=== PATIENT | female | born 1995 | race Two or more races ===

== ENCOUNTER 2025-03-17 21:26 | Inpatient (IN) | payer MEDICARE, OTHER ==
[~2025-03-17] VITALS: Ht 167.6 cm; Wt 103.6 kg
--- NOTE | 2025-03-17 21:43 | ED.PDOC ---
History of Present Illness HPI Comments 29 year old female came to ER via EMS due to headaches. Patient has history of schizophrenia and bipolar disorder. States for the past few hours she has been complaining of headaches, 5/10 intensity, associated with nausea, and she claims that he CSF is draining out her nose. Patient does not appear to be at any pain at this time of care. 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 Allergies: Coded Allergies: Vancomycin (Verified Allergy, Unknown, 03/17/25) Information Source: Patient, Emergency Med Personnel Mode of Arrival: EMS Severity: Moderate Timing: Hours Duration: Intermittent Past Medical History PAST MEDICAL HISTORY: Schizophrenia Past Medical History (Other): Bipolar disorder Surgical History: Denies all surgeries SOUND EDITOR History: Denies all SOUND EDITOR Hx Family History Family History: Reviewed,noncontributory to illness Social History Smoker: Non-Smoker Alcohol: Denies ETOH Use Drugs: Denies Drug Use Lives In: Home Constitutional: denies: chills, diaphoresis, fatigue, fever, malaise, sweats, weakness, others EENTM: denies: blurred vision, double vision, ear bleeding, ear discharge, ear drainage, ear pain, ear ringing, eye pain, eye redness, hearing loss, mouth pain, mouth swelling, nasal discharge, nose bleeding, nose congestion, nose pain, photophobia, tearing, throat pain, throat swelling, voice changes, others Respiratory: denies: cough, hemoptysis, orthopnea, SOB at rest, shortness of breath, SOB with excertion, stridor, wheezing, others Cardiovascular: denies: chest pain, dizzy spells, diaphoresis, Dyspnea on exertion, edema, irregular heart beat, left arm pain, lightheadedness, palpitations, PND, syncope, others Gastrointestinal: denies: abdomen distended, abdominal pain, blood streaked bowels, constipated, diarrhea, dysphagia, difficulty swallowing, hematemesis, melena, nausea, poor appetite, poor fluid intake, rectal bleeding, rectal pain, vomiting, others Genitourinary: denies: abnormal vagina bleeding, burning, dyspareunia, dysuria, flank pain, frequency, hematuria, incontinence, pain, , vagina discharge, urgency, others Neurological: reports: headache; denies: dizziness, fainting, left sided numbness, left sided weakness, numbness, paresthesia, pre-existing deficit, right sided numbness, right sided weakness, seizure, speech problems, tingling, tremors, weakness, others Musculoskeletal: denies: back pain, gout, joint pain, joint swelling, muscle pain, muscle stiffness, neck pain, others Integumetry: denies: bruises, change in color, change in hair/nails, dryness, laceration, lesions, lumps, rash, wounds, others Allergic/Immunocompromised: denies: Difficulty Healing, Frequent Infections, Hives, Itching, others Hematologic/Lymphatic: denies: anemia, blood clots, easy bleeding, easy bruising, swollen glands, others Endocrine: denies: excessive hunger, excessive sweating, excessive thirst, excessive urination, flushing, intolerance to cold, intolerance to heat, unexplained weight gain, unexplained weight loss, others Psychiatric: denies: anxiety, bipolar disorder, depression, hopeless, panic disorder, schizophrenia, sleepless, suicidal, others Physical Exam General Appearance: No Apparent Distress, Normal HEENT: Normal ENT Inspection, Pharynx Normal, TMs Normal Neck: Full Range of Motion, Non-Tender, Normal, Normal Inspection Respiratory: Chest Non-Tender, Lungs Clear, No Accessory Muscle Use, No Respiratory Distress, Normal Breath Sounds Cardiovascular: No Edema, No JVD, No Murmur, No Gallop, Normal Peripheral Pulses, Regular Rate/Rhythm Breast Exam: Deferred Gastrointestinal: No Organomegaly, Non Tender, No Pulsatile Mass, Normal Bowel Sounds, Soft Genitalia: Deferred Pelvic: Deferred Rectal: Deferred Extremities: No calf tenderness, Normal capillary refill, Normal inspection, Normal range of motion, Non-tender, No pedal edema Musculoskeletal : Apperance: Normal Neurologic: Alert, sandwich hand II-XII nml as Tested, No Motor Deficits, Normal Affect, Normal Mood, No Sensory Deficits Cerebellar Function: Normal Reflexes: Normal Skin: Dry, Normal Color, Warm Lymphatic: No Adenopathy Was a procedure done? Was a procedure done?: No Differential Dx Considerations may include: anemia, headaches, schizophrenia, bipolar disorder X-Ray, Labs, Meds, VS Vital Signs Date Time Temp Pulse Resp B/P (MAP) Pulse Ox O2 Delivery O2 Flow Rate FiO2 03/17/25 21:26 99.0 110 17 112/53 (72) 98 99.0 Lab Test 03/18/25 00:15 03/17/25 23:30 03/17/25 22:06 Range/Units Lactic Acid Level 1.9 0.4-2.0 mmol/L Urine Color Yellow Yellow Urine Clarity Clear Clear Urine pH 5.5 5.0-9.0 Urine Specific [place] 1.031 1.001-1.035 Urine Protein Trace H Negative Urine Ketones Trace Negative Urine Blood 1+ H Negative /uL Urine Nitrite Negative Negative Urine Bilirubin Negative Negative Urine Urobilinogen Normal Negative mg/dL Urine Leukocyte Esterase Negative Negative /uL Urine RBC 2 0 - 4 /hpf Urine Microscopic WBC 2 0-5 /HPF Urine Squamous Epithelial Cells Few <5 /hpf Urine Bacteria None seen None Seen /hpf Urine Mucus Few None Seen Urine Glucose Normal Normal mg/dL Urine Opiates Screen Neg NEGATIVE Urine Fentanyl Screen Neg NEGATIVE Urine Barbiturates Screen Neg NEGATIVE Urine Phencyclidine Screen Neg NEGATIVE Urine Amphetamines Screen Neg NEGATIVE Urine Benzodiazepines Screen Neg NEGATIVE Urine Cocaine Screen Neg NEGATIVE Urine Cannabinoids Screen Neg NEGATIVE White Blood Count 23.0 H 4.4-10.8 10^3/uL Red Blood Count 5.55 H 4.0-5.20 10^6/uL Hemoglobin 13.4 12.2-16.2 g/dL Hematocrit 41.8 36.0-46.0 % Mean Corpuscular Volume 75.4 L 80.0-100.0 fL Mean Corpuscular Hemoglobin 24.2 L 28.0-32.0 pg Mean Corpuscular Hemoglobin Concent 32.1 32.0-36.0 g/dL Red Cell Distribution Width 16.8 H 11.8-14.3 % Platelet Count 540 H 140-450 10^3/uL Mean Platelet Volume 9.0 6.9-10.8 fL Neutrophils (%) (Auto) 68.2 37.0-80.0 % Lymphocytes (%) (Auto) 20.1 10.0-50.0 % Monocytes (%) (Auto) 8.4 0.0-12.0 % Eosinophils (%) (Auto) 1.8 0.0-7.0 % Basophils (%) (Auto) 1.5 0.0-2.0 % Neutrophils # (Auto) 15.7 H 1.6-8.6 10 ^3/uL Lymphocytes # (Auto) 4.6 0.4-5.4 10 ^3/uL Monocytes # (Auto) 1.9 H 0-1.3 10 ^3/uL Eosinophils # (Auto) 0.4 0-0.8 10 ^3/uL Basophils # (Auto) 0.3 H 0-0.2 10 ^3/uL Nucleated Red Blood Cells 0.0 % Sodium Level 141 136-145 mmol/L Potassium Level 4.1 3.5-5.1 mmol/L Chloride Level 107 98-107 mmol/L Carbon Dioxide Level 26 20-31 mmol/L Anion Gap 8 5-15 Blood Urea Nitrogen 11 9-23 mg/dL Creatinine 0.88 0.550-1.02 mg/dL Glomerular Filtration Rate Calc 92 >90 mL/min BUN/Creatinine Ratio 12.5 10.0-20.0 Serum Glucose 104 74-106 mg/dL Calcium Level 10.1 8.7-10.4 mg/dL Salicylates Level < 3.0 -30 mg/dL Acetaminophen Level < 2.0 L 10.0-20.0 UG/ML Plasma/Serum Blood Alcohol < 3.0 <10 mg/dL Current Medications Medications (Trade) Dose Ordered Sig/Miguel Angel Route Start Time Stop Time Status Last Admin Acetaminophen (Tylenol Tablet) 650 mg ONCE ONCE PO 03/17/25 22:00 03/17/25 22:01 DC 03/17/25 23:15 Time of 1ST Reevaluation: 21:39 Reevaluation 1ST: Unchanged Patient Education/Counseling: Diagnosis, Treatment Family Education/Counseling: No Family Present Sepsis Sepsis Reasesment Focused Exam Orders: Laboratory Tests 03/18/25 00:15: Lactic Acid Level 1.9 Departure 1 Departure Time of Disposition: 01:52 (Patient presents with psychosis your bed elevated white count. We will empirically cover patient with antibiotics for possible infection admit patient for medical clearance.) Impression: Primary Impression: Acute metabolic encephalopathy Additional Impressions: Psychosis Qualified Codes: F29 - Unspecified psychosis not due to a substance or known physiological condition Elevated white blood cell count Qualified Codes: D72.829 - Elevated white blood cell count, unspecified Disposition: 09 ADMITTED INPATIENT Admit to: Med Surg Condition: Serious Critical Care Note Critical Care Time?: No Stability Stability form required: No Heart Score Heart Score: Heart Score Response (Comments) Value History N/A 0 EKG N/A 0 Age N/A 0 Risk Factors N/A 0 Troponin N/A 0 Total 0 I personally scribed for FRANNIE TESFAYE MD ([email or web address]) on 03/17/25 at 21:43. Electronically submitted by Mulugeta Bynum ([facility]). FRANNIE TESFAYE MD March 17, 2025 21:43
[2025-03-17 22:23] LABS: Basophils # (auto) 0.3 10 ^3/uL (0-0.2); Eosinophils # (auto) 0.4 10 ^3/uL (0-0.8); Hemoglobin 13.4 g/dL (12.2-16.2); Lymphocytes # (auto) 4.6 10 ^3/uL (0.4-5.4); Red Cell Distribution Width 16.8 % (11.8-14.3)
[2025-03-17 22:25] LABS: Basophils % (auto) 1.5 % (0.0-2.0); Eosinophils % (auto) 1.8 % (0.0-7.0); Hematocrit 41.8 % (36.0-46.0); Lymphocytes % (auto) 20.1 % (10.0-50.0); Mean Corpuscular Hemoglobin 24.2 pg (28.0-32.0); Mean Corpuscular Hgb Conc. 32.1 g/dL (32.0-36.0); Mean Corpuscular Volume 75.4 fL (80.0-100.0); Monocytes # (auto) 1.9 10 ^3/uL (0-1.3); Monocytes % (auto) 8.4 % (0.0-12.0); Neutrophils # (auto) 15.7 10 ^3/uL (1.6-8.6); Neutrophils % (auto) 68.2 % (37.0-80.0); Platelet Count (auto) 540 10^3/uL (140-450); Red Blood Cells 5.55 10^6/uL (4.0-5.20)
[2025-03-17 22:32] LABS: Potassium 4.1 mmol/L (3.5-5.1); Sodium 141 mmol/L (136-145)
[2025-03-17 22:33] LABS: Anion Gap 8 (5-15); Calcium 10.1 mg/dL (8.7-10.4); Carbon Dioxide 26 mmol/L (20-31)
[2025-03-17 22:38] LABS: BUN/Creatinine Ratio 12.5 (10.0-20.0); Blood Urea Nitrogen 11 mg/dL (9-23); Glucose 104 mg/dL (74-106)
[2025-03-17 22:42] LABS: Acetaminophen < 2.0 UG/ML (10.0-20.0); Blood Alcohol < 3.0 mg/dL (<10); Chloride 107 mmol/L (98-107); Salicylate < 3.0 mg/dL (-30)
[2025-03-17] MEDS: ACETAMINOPHEN 325 MG TAB PO ONE (23:15)
[2025-03-18] VITALS (7 sets, daily range): BP systolic 125–147; BP diastolic 76–89; PULSE 77–91; RESP 12–20; TEMP 97.6–99; O2SAT 94–98
[2025-03-18 00:10] LABS: Urine Bacteria None Seen /hpf (None Seen)
[2025-03-18 00:18] LABS: Urine Blood 1+ /uL (Negative); Urine Clarity Clear (Clear); Urine Color Yellow (Yellow); Urine Mucus FEW (None Seen); Urine Protein, UAD TRACE (Negative); Urine Specific Gravity 1.031 (1.001-1.035); Urine Squamous Epithelial Cell FEW /hpf (<5); Urine Urobilinogen Normal (Negative); Urine WBC 2 /HPF (0-5); Urine pH 5.5 (5.0-9.0)
[2025-03-18 00:27] LABS: Amphetamine Screen, Urine Neg (NEGATIVE); Barbiturate Scree,Urine Neg (NEGATIVE); Benzodiazephine Screen, Urine Neg (NEGATIVE); Cannabinoid Screen, Urine Neg (NEGATIVE); Cocaine Screen, Urine Neg (NEGATIVE); Opiate Scree,Urine Neg (NEGATIVE); Phencyclidine Screen, Urine Neg (NEGATIVE)
--- NOTE | 2025-03-18 02:22 | DVH ---
EXAM: CT HEAD WITHOUT CONTRAST INDICATION: psychosis TECHNIQUE: CT of the head without intravenous contrast. Radiation Dose : 1. Head: CT Dose: CTDI volume is 55.14 mGy. Dose-length product is 975.23 mGy*cm The dose indicators for CT are the volume Computed Tomography (CT) Dose Index (CTDIvol) and the Dose Length Product (DLP), and are measured in units of mGy and mGy-cm, respectively. These indicators are not patient dose, but values generated from the CT scanner acquisition factors. The report includes radiation exposure data for exposures received during this examination. COMPARISON: None FINDINGS: There is no evidence of acute intracranial hemorrhage, extra-axial collection, mass effect, midline s hift, herniation or hydrocephalus. The ventricles, sulci and cisterns are age appropriate. The hernandez-white differentiation is intact. The visualized paranasal sinuses and mastoid air cells are clear. The surrounding soft tissues and osseous structures are unremarkable. Hyperostosis frontalis interna noted. IMPRESSION: 1. No acute intracranial abnormality. Radiation optimization: All CT scans at this facility use at least one of these dose optimization lakisha hniques: automated exposure control mA and/or kV adjustment per patient size (includes targeted exam s where dose is matched to clinical indication) or iterative reconstruction.
[2025-03-18] MEDS: SODIUM CHLORIDE 0.9% 1,000 ML IV ONE ×2 (03:36→04:03)
[2025-03-18] MEDS: CEFEPIME 2GM/50ML NS 50 ML IV ONE (03:36)
[2025-03-18] MEDS ORDERED: ONDANSETRON HCL 4 MG/2 ML VIAL IV PRN (07:15)
--- NOTE | 2025-03-18 07:23 | DVHHP2 ---
History of Present Illness Reason for Visit: Headache History of Present Illness The patient is a 29-year-old female with a known past medical history of schizophrenia and bipolar disorder. She presents to the ED with complaint of headaches that began a few hours ago. She describes the headache as persistent and associated with nausea. She reports that "C SF is draining from my nose" down no objective evidence of CSF rhinorrhea is confirmed at this time. The patient admits to auditory hallucination involving both male and female voices. She describes the voices as accusatory, telling her that she has pedophile and engaging in verbal harassment. She denies visual hallucination or suicidal/homicidal ideation. No recent trauma is reported. She resides in a boarding care facility and appears to be psychiatrically to compensating. Past Medical History As stated in HPI Past Surgical History Denies Family History Reviewed, non-contributory to the management of this case. Past Social History [facility] Denies tobacco, illicit drug, or ETOH use Review of Systems Constitutional: Yes: Malaise; No: Fever, Chills, Sweats, Weakness, Other Eyes: No: Pain, Vision change, Conjunctivae inflammation, Eyelid inflammation, Other, Redness ENT: No: Ear pain, Ear discharge, Nose pain, Nose discharge, Nose congestion, Mouth pain, Mouth swelling, Throat pain, Throat swelling, Other Cardiovascular: No: Chest Pain, Palpitations, Orthopnea, Paroxysmal Noc. Dyspnea, Edema, Lt Headedness, Other Gastrointestinal: No: Nausea, Vomiting, Abdominal Pain, Diarrhea, Constipation, Melena, Hematochezia, Other Genitourinary: No Dysuria, No Frequency, No Incontinence, No Hematuria, No Retention, No Other Musculoskeletal: No: other, neck pain, shoulder pain, arm pain, back pain, hand pain, leg pain, foot pain Skin: No: Rash, Lesions, Jaundice, Bruising, Other Neurological: Confusion, Other (Hearing voices); No: Weakness, Numbness, Incoordination, Change in speech, Seizures Allergies: Coded Allergies: Vancomycin (Verified Allergy, Unknown, 03/17/25) Medications Current Medications Medications Dose Ordered Sig/Miguel Angel Route Start Time Stop Time Status Last Admin Dose Admin Sodium Chloride 1,000 ml @ 100 mls/hr Q10H IV 03/18/25 07:15 UNV Ondansetron HCl 4 mg Q4HP PRN IV 03/18/25 07:15 UNV Ceftriaxone Sodium 50 ml @ 100 mls/hr DAILY@09 IV 03/19/25 09:00 UNV Exam Vital Signs Vital Signs Date Time Temp Pulse Resp B/P (MAP) Pulse Ox O2 Delivery O2 Flow Rate FiO2 03/18/25 06:00 75 12 135/116 (122) 99 03/18/25 03:53 Room Air* 0 21 03/18/25 03:44 98.1 General Appearance: Alert, Cooperative, mild distress HEENT: Atraumatic, PERRLA, EOMI Respiratory: Clear to auscultation Cardiovascular: Regular rate, Normal S1, Normal S2 Abdominal: Normal bowel sounds, Soft, No tenderness Extremities: No clubbing, No cyanosis, No edema Skin: No rashes, No breakdown, No significant lesion Neuro: Normal gait, Normal speech Psych/Mental Status: Other (Auditory hallucination) Labs/Xrays Labs Test 03/18/25 00:15 03/17/25 23:30 03/17/25 22:06 Range/Units Lactic Acid Level 1.9 0.4-2.0 mmol/L Urine Color Yellow Yellow Urine Clarity Clear Clear Urine pH 5.5 5.0-9.0 Urine Specific [place] 1.031 1.001-1.035 Urine Protein Trace H Negative Urine Ketones Trace Negative Urine Blood 1+ H Negative /uL Urine Nitrite Negative Negative Urine Bilirubin Negative Negative Urine Urobilinogen Normal Negative mg/dL Urine Leukocyte Esterase Negative Negative /uL Urine RBC 2 0 - 4 /hpf Urine Microscopic WBC 2 0-5 /HPF Urine Squamous Epithelial Cells Few <5 /hpf Urine Bacteria None seen None Seen /hpf Urine Mucus Few None Seen Urine Glucose Normal Normal mg/dL Urine Opiates Screen Neg NEGATIVE Urine Fentanyl Screen Neg NEGATIVE Urine Barbiturates Screen Neg NEGATIVE Urine Phencyclidine Screen Neg NEGATIVE Urine Amphetamines Screen Neg NEGATIVE Urine Benzodiazepines Screen Neg NEGATIVE Urine Cocaine Screen Neg NEGATIVE Urine Cannabinoids Screen Neg NEGATIVE White Blood Count 23.0 H 4.4-10.8 10^3/uL Red Blood Count 5.55 H 4.0-5.20 10^6/uL Hemoglobin 13.4 12.2-16.2 g/dL Hematocrit 41.8 36.0-46.0 % Mean Corpuscular Volume 75.4 L 80.0-100.0 fL Mean Corpuscular Hemoglobin 24.2 L 28.0-32.0 pg Mean Corpuscular Hemoglobin Concent 32.1 32.0-36.0 g/dL Red Cell Distribution Width 16.8 H 11.8-14.3 % Platelet Count 540 H 140-450 10^3/uL Mean Platelet Volume 9.0 6.9-10.8 fL Neutrophils (%) (Auto) 68.2 37.0-80.0 % Lymphocytes (%) (Auto) 20.1 10.0-50.0 % Monocytes (%) (Auto) 8.4 0.0-12.0 % Eosinophils (%) (Auto) 1.8 0.0-7.0 % Basophils (%) (Auto) 1.5 0.0-2.0 % Neutrophils # (Auto) 15.7 H 1.6-8.6 10 ^3/uL Lymphocytes # (Auto) 4.6 0.4-5.4 10 ^3/uL Monocytes # (Auto) 1.9 H 0-1.3 10 ^3/uL Eosinophils # (Auto) 0.4 0-0.8 10 ^3/uL Basophils # (Auto) 0.3 H 0-0.2 10 ^3/uL Nucleated Red Blood Cells 0.0 % Sodium Level 141 136-145 mmol/L Potassium Level 4.1 3.5-5.1 mmol/L Chloride Level 107 98-107 mmol/L Carbon Dioxide Level 26 20-31 mmol/L Anion Gap 8 5-15 Blood Urea Nitrogen 11 9-23 mg/dL Creatinine 0.88 0.550-1.02 mg/dL Glomerular Filtration Rate Calc 92 >90 mL/min BUN/Creatinine Ratio 12.5 10.0-20.0 Serum Glucose 104 74-106 mg/dL Calcium Level 10.1 8.7-10.4 mg/dL Salicylates Level < 3.0 -30 mg/dL Acetaminophen Level < 2.0 L 10.0-20.0 UG/ML Plasma/Serum Blood Alcohol < 3.0 <10 mg/dL PROCEDURE(s): CXRP - CHEST PORTABLE REASON: acute metabolic encephalopathy ORDER NUMBER(s): [id number], ACCESSION NUMBER(s): [id number] CHEST RADIOGRAPH Indication: acute metabolic encephalopathy Technique: Single frontal view of the chest was obtained COMPARISON: None FINDINGS: Lines and Tubes: None Lungs: Clear Pleura: No effusion. No pneumothorax. Cardiomediastinal contours: Unremarkable Bones: Unremarkable IMPRESSION: No acute disease. Assessment/Plan Assessment/Plan #Acute metabolic encephalopathy, likely due to below # schizophrenia-acute exacerbation # bipolar disorder- history not currently active, no manic or depressive features reported during this encounter Admit to medical unit Positive symptoms: Auditory hallucination, paranoia Possibly triggered by medication noncompliance or psychosocial stressors Psych tele consultation - pending 1:1 sitter for safety Obtain collateral from [facility] regarding recent behavior and medical risk and compliance analytics director for suicidal/homicidality and escalating psychosis # leukocytosis- source unclear, ?Infectious or stress related causes # headaches with nausea- etiology unclear # rule out organic cause Head CT reviewed with normal findings Consider beta-2 transferrin testing if true CSF rhinorrhea suspected Analgesics and antiemetics Empiric antibiotic ceftriaxone [place] cultures Monitor WBC trend Medical plan discussed with patient and RN Plan discussed with: Patient My Orders Orders - MARÍA MARC Procedure Category Date Status Time Complete Blood Count LAB 03/18/25 Logged 07:11 Basic Metabolic Panel LAB 03/18/25 Logged 07:11 Chest Portable XY 03/18/25 Logged 07:11 Test, Urine LAB 03/18/25 Logged 07:11 Urine Bacterial LAUREN 03/18/25 Logged Culture 07:11 Respiratory Culture LAUREN 03/18/25 Logged W/ Gs 07:11 Admit ADMIT 03/18/25 Transmitted 07:13 Code Status CODE 03/18/25 Transmitted 07:13 Sodium Chloride 0.9% PHA 03/18/25 Logged 07:15 Ondansetron Hcl PHA 03/18/25 Logged (Zofran) 07:15 Cardiac DIET 03/18/25 Transmitted Diet-2gna,Lofat,Lochol Breakfast Condition: Fair CYNDI 03/18/25 In Process 07:13 Complete Blood Count LAB 03/19/25 Verified 04:00 Basic Metabolic Panel LAB 03/19/25 Verified 04:00 Ceftriaxone 1gm/50ml PHA 03/19/25 Logged D5w (Rocephin) 09:00 Date of Service: Mar 18, 2025 Billing Provider: MARÍA MARC Common Visit Codes: [id number] INP/OBS CARE (HIGH) MARÍA MARC Mar 18, 2025 07:23
[2025-03-18 07:52] LABS: Eosinophils # (auto) 0.3 10 ^3/uL (0-0.8); Eosinophils % (auto) 1.4 % (0.0-7.0); White Blood Cell 18.9 10^3/uL (4.4-10.8)
[2025-03-18 07:54] LABS: Basophils # (auto) 0.3 10 ^3/uL (0-0.2); Basophils % (auto) 1.4 % (0.0-2.0); Hematocrit 38.8 % (36.0-46.0); Hemoglobin 12.5 g/dL (12.2-16.2); Lymphocytes # (auto) 4.3 10 ^3/uL (0.4-5.4); Mean Corpuscular Hemoglobin 24.3 pg (28.0-32.0); Mean Corpuscular Hgb Conc. 32.1 g/dL (32.0-36.0); Mean Corpuscular Volume 75.5 fL (80.0-100.0); Monocytes # (auto) 1.8 10 ^3/uL (0-1.3); Monocytes % (auto) 9.4 % (0.0-12.0); Neutrophils # (auto) 12.2 10 ^3/uL (1.6-8.6); Neutrophils % (auto) 64.8 % (37.0-80.0); Platelet Count (auto) 534 10^3/uL (140-450); Red Blood Cells 5.14 10^6/uL (4.0-5.20); Red Cell Distribution Width 17.1 % (11.8-14.3)
--- NOTE | 2025-03-18 07:55 | DVH ---
CHEST RADIOGRAPH Indication: acute metabolic encephalopathy Technique: Single frontal view of the chest was obtained COMPARISON: None FINDINGS: Lines and Tubes: None Lungs: Clear Pleura: No effusion. No pneumothorax. Cardiomediastinal contours: Unremarkable Bones: Unremarkable IMPRESSION: No acute disease.
[2025-03-18 08:00] LABS: Sodium 140 mmol/L (136-145)
[2025-03-18 08:01] LABS: Anion Gap 6 (5-15); Calcium 9.1 mg/dL (8.7-10.4); Carbon Dioxide 25 mmol/L (20-31)
[2025-03-18 08:05] LABS: Chloride 109 mmol/L (98-107)
[2025-03-18 08:06] LABS: BUN/Creatinine Ratio 14.3 (10.0-20.0); Blood Urea Nitrogen 11 mg/dL (9-23); Glucose 95 mg/dL (74-106)
[2025-03-18] MEDS ORDERED: DIVA250T12 PO (09:46)
[2025-03-18] MEDS ORDERED: DIVA1TAB58 PO (09:46)
[2025-03-18] MEDS ORDERED: TRAZ-227 PO (09:46)
[2025-03-18] MEDS: traZODone HCL 50 MG TAB PO SCH (10:00)
[2025-03-18] MEDS: SODIUM CHLORIDE 0.9% 1,000 ML IV SCH (14:00)
[2025-03-18] MEDS: cefTRIAXone 1GM/50ML D5W 50 ML IV SCH (14:00)
[2025-03-18] MEDS ORDERED: RISP1TAB63 PO (14:31)
[2025-03-18] MEDS ORDERED: BENZ1TAB6 (14:31)
--- NOTE | 2025-03-18 14:34 | DVHPN2 ---
Subjective Patient denies any symptoms at this time Reviewed: Care Plan, H&P, Labs Changes from previous H/P or p: No Changes Eyes: No Pain, No Vision change, No Conjunctivae inflammation, No Eyelid inflammation, No Other, No Redness ENT: No Ear pain, No Ear discharge, No Nose pain, No Nose discharge, No Nose congestion, No Mouth pain, No Mouth swelling, No Throat pain, No Throat swelling, No Other Cardiovascular: No Chest Pain, No Palpitations, No Orthopnea, No Paroxysmal Noc. Dyspnea, No Edema, No Lt Headedness, No Other Gastrointestinal: No Nausea, No Vomiting, No Abdominal Pain, No Diarrhea, No Constipation, No Melena, No Hematochezia, No Other Genitourinary: No Dysuria, No Frequency, No Incontinence, No Hematuria, No Retention, No Other Musculoskeletal: No other, No neck pain, No shoulder pain, No arm pain, No back pain, No hand pain, No leg pain, No foot pain Skin: No Rash, No Lesions, No Jaundice, No Bruising, No Other Psych: Other (Auditory hallucination with no indication of suicidal ideation or self-harm or harm to others.) Objective Vitals Vital Signs Date Time Temp Pulse Resp B/P (MAP) Pulse Ox O2 Delivery O2 Flow Rate FiO2 03/18/25 13:00 98.0 78 20 134/86 (102) 97 98.0 03/18/25 10:19 Room Air* 0 21 Intake/Output Intake and Output 03/18/25 07:00 Intake Total 2037.5 ml Balance 2037.5 ml Intake IV Total 2037.5 ml General Appearance: Alert, Oriented X3, Cooperative, mild distress HEENT: Atraumatic, PERRLA Cardiovascular: Normal S1, Normal S2 Musculoskeletal: Normal sensory function, Normal motor function Skin: Cyanosis, Dry, Intact Psych/Mental Status: Mood NL, Other (Verbal and auditory hallucinations) Medications Current Medications Medications Dose Ordered Sig/Miguel Angel Route Start Time Stop Time Status Last Admin Dose Admin Sodium Chloride 1,000 ml @ 100 mls/hr Q10H IV 03/18/25 07:15 03/18/25 14:00 100 MLS/HR Ondansetron HCl 4 mg Q4HP PRN IV 03/18/25 07:15 Ceftriaxone Sodium 50 ml @ 100 mls/hr DAILY@09 IV 03/18/25 10:40 03/18/25 14:00 100 MLS/HR Divalproex Sodium 250 mg BID PO 03/18/25 10:00 UNV Trazodone HCl 50 mg DAILY PO 03/18/25 10:00 Divalproex Sodium 250 mg TID PO 03/18/25 14:00 Laboratory Results Laboratory Tests 03/18/25 07:40 Chemistry Test 03/17/25 22:06 03/18/25 07:40 Calcium Level 10.1 mg/dL (8.7-10.4) 9.1 mg/dL (8.7-10.4) Urinalysis Test 03/17/25 23:30 03/18/25 08:25 Urine Color Yellow (Yellow) Urine Clarity Clear (Clear) Urine pH 5.5 (5.0-9.0) Urine Specific [place] 1.031 (1.001-1.035) Urine Protein Trace (Negative) H Urine Ketones Trace (Negative) Urine Blood 1+ /uL (Negative) H Urine Nitrite Negative (Negative) Urine Bilirubin Negative (Negative) Urine Urobilinogen Normal mg/dL (Negative) Urine Leukocyte Esterase Negative /uL (Negative) Urine RBC 2 /hpf (0 - 4) Urine Microscopic WBC 2 /HPF (0-5) Urine Squamous Epithelial Cells Few /hpf (<5) Urine Bacteria None seen /hpf (None Seen) Urine Mucus Few (None Seen) Urine Glucose Normal mg/dL (Normal) Urine Test Negative (Negative) Labs and/or images reviewed: Labs reviewed by me, Image(s) reviewed by me Assessment/Plan Assessment/Plan Impression: -leukocytosis, rule out sepsis -schizophrenia -acute psychosis -obesity Plan: -medication reconciliation performed. Restart patient's risperidone and Cogentin. Continue previously ordered trazodone and valproic acid as prescribed by primary psychiatrist -psychiatry consultation: Patient refusing at this time -continue empiric antibiotic therapy -tracy cultures -gentle IV hydration -repeat labs in a.m. Total time spent with patient discussing and formulating plan of care: 35 minutes. This medical document was created using an electronic medical record system with [email or web address] dictation system. Although this document has been carefully reviewed, there may still be some phonetic and typographical errors. These areas are purely typographical due to imperfections of the software programs, and do not reflect any compromise in the patient's medical care. Plan discussed with: Patient, Other (RN) Date of Service: Mar 18, 2025 Billing Provider: ENDY BOX NP Common Visit Codes: [id number]/OBS SAME DATE (HIGH) ENDY BOX NP Mar 18, 2025 14:34
[2025-03-19] VITALS (8 sets, daily range): BP systolic 112–136; BP diastolic 64–84; PULSE 67–89; RESP 18–24; TEMP 97.7–98.6; O2SAT 94–100
[2025-03-19 07:44] LABS: Basophils # (auto) 0.2 10 ^3/uL (0-0.2); Eosinophils # (auto) 0.3 10 ^3/uL (0-0.8); Hematocrit 39.3 % (36.0-46.0); Hemoglobin 12.4 g/dL (12.2-16.2); Lymphocytes # (auto) 4.2 10 ^3/uL (0.4-5.4); Lymphocytes % (auto) 26.9 % (10.0-50.0); Mean Corpuscular Hemoglobin 23.8 pg (28.0-32.0); Mean Corpuscular Hgb Conc. 31.6 g/dL (32.0-36.0); Mean Corpuscular Volume 75.2 fL (80.0-100.0); Monocytes # (auto) 1.3 10 ^3/uL (0-1.3); Monocytes % (auto) 8.1 % (0.0-12.0); Neutrophils # (auto) 9.6 10 ^3/uL (1.6-8.6); Platelet Count (auto) 510 10^3/uL (140-450); Red Blood Cells 5.23 10^6/uL (4.0-5.20); Red Cell Distribution Width 17.1 % (11.8-14.3); White Blood Cell 15.5 10^3/uL (4.4-10.8)
[2025-03-19 08:01] LABS: Chloride 110 mmol/L (98-107); Potassium 5.4 mmol/L (3.5-5.1); Sodium 141 mmol/L (136-145)
[2025-03-19 08:02] LABS: Anion Gap 3 (5-15); Calcium 9.1 mg/dL (8.7-10.4); Carbon Dioxide 28 mmol/L (20-31)
[2025-03-19 08:07] LABS: BUN/Creatinine Ratio 9.6 (10.0-20.0); Glucose 87 mg/dL (74-106)
[2025-03-19 08:10] LABS: Blood Urea Nitrogen 7 mg/dL (9-23)
[2025-03-19] MEDS: BENZTROPINE MESY 0.5 MG TAB PO SCH (10:45)
[2025-03-19] MEDS: risperiDONE 1 MG TAB PO SCH (10:45)
--- NOTE | 2025-03-19 14:00 | DVHPN2 ---
Subjective Patient denies any symptoms at this time Reviewed: Care Plan, H&P, Labs Changes from previous H/P or p: No Changes Eyes: No Pain, No Vision change, No Conjunctivae inflammation, No Eyelid inflammation, No Other, No Redness ENT: No Ear pain, No Ear discharge, No Nose pain, No Nose discharge, No Nose congestion, No Mouth pain, No Mouth swelling, No Throat pain, No Throat swelling, No Other Cardiovascular: No Chest Pain, No Palpitations, No Orthopnea, No Paroxysmal Noc. Dyspnea, No Edema, No Lt Headedness, No Other Gastrointestinal: No Nausea, No Vomiting, No Abdominal Pain, No Diarrhea, No Constipation, No Melena, No Hematochezia, No Other Genitourinary: No Dysuria, No Frequency, No Incontinence, No Hematuria, No Retention, No Other Musculoskeletal: No other, No neck pain, No shoulder pain, No arm pain, No back pain, No hand pain, No leg pain, No foot pain Skin: No Rash, No Lesions, No Jaundice, No Bruising, No Other Psych: Other (Auditory hallucination with no indication of suicidal ideation or self-harm or harm to others.) Objective Vitals Vital Signs Date Time Temp Pulse Resp B/P (MAP) Pulse Ox O2 Delivery O2 Flow Rate FiO2 03/19/25 13:04 98.0 87 24 136/80 (98) 100 98.0 03/19/25 08:00 Room Air* 0 21 Intake/Output Intake and Output 03/19/25 07:00 Intake Total 1350 ml Balance 1350 ml Intake Oral 350 ml IV Total 1000 ml # Voids 4 General Appearance: Alert, Oriented X3, Cooperative, mild distress HEENT: Atraumatic, PERRLA Cardiovascular: Normal S1, Normal S2 Musculoskeletal: Normal sensory function, Normal motor function Skin: Cyanosis, Dry, Intact Psych/Mental Status: Mood NL, Other (Verbal and auditory hallucinations) Medications Current Medications Medications Dose Ordered Sig/Miguel Angel Route Start Time Stop Time Status Last Admin Dose Admin Sodium Chloride 1,000 ml @ 100 mls/hr Q10H IV 03/18/25 07:15 03/19/25 03:20 100 MLS/HR Ondansetron HCl 4 mg Q4HP PRN IV 03/18/25 07:15 Ceftriaxone Sodium 50 ml @ 100 mls/hr DAILY@09 IV 03/18/25 10:40 03/19/25 10:45 100 MLS/HR Divalproex Sodium 250 mg BID PO 03/18/25 10:00 UNV Trazodone HCl 50 mg DAILY PO 03/18/25 10:00 03/19/25 10:45 50 MG Divalproex Sodium 250 mg TID PO 03/18/25 14:00 03/19/25 10:45 250 MG Risperidone 1 mg DAILY PO 03/19/25 10:00 03/19/25 10:45 1 MG Benztropine Mesylate 1 mg DAILY PO 03/19/25 10:00 03/19/25 10:45 1 MG Laboratory Results Laboratory Tests 03/19/25 07:21 Chemistry Test 03/19/25 07:21 Calcium Level 9.1 mg/dL (8.7-10.4) Urinalysis Test 03/17/25 23:30 03/18/25 08:25 Urine Color Yellow (Yellow) Urine Clarity Clear (Clear) Urine pH 5.5 (5.0-9.0) Urine Specific [place] 1.031 (1.001-1.035) Urine Protein Trace (Negative) H Urine Ketones Trace (Negative) Urine Blood 1+ /uL (Negative) H Urine Nitrite Negative (Negative) Urine Bilirubin Negative (Negative) Urine Urobilinogen Normal mg/dL (Negative) Urine Leukocyte Esterase Negative /uL (Negative) Urine RBC 2 /hpf (0 - 4) Urine Microscopic WBC 2 /HPF (0-5) Urine Squamous Epithelial Cells Few /hpf (<5) Urine Bacteria None seen /hpf (None Seen) Urine Mucus Few (None Seen) Urine Glucose Normal mg/dL (Normal) Urine Test Negative (Negative) Microbiology Microbiology Date/Time Source Procedure Growth Status 03/18/25 08:25 Voided Urine Urine Culture - Preliminary Resulted 03/18/25 00:18 Blood Blood Culture - Preliminary NO GROWTH AFTER 24 HOURS OF INCUBATION. Resulted Labs and/or images reviewed: Labs reviewed by me, Image(s) reviewed by me Assessment/Plan Assessment/Plan Impression: -leukocytosis, rule out sepsis -schizophrenia -acute psychosis -obesity Plan: Events: No events overnight. White blood cell count improving. Now hypokalemic -one dose of Lokelma -psychiatry consultation: Patient refusing at this time -continue empiric antibiotic therapy -tracy cultures -gentle IV hydration -repeat labs in a.m. Total time spent with patient discussing and formulating plan of care: 35 minutes. This medical document was created using an electronic medical record system with [employer] dictation system. Although this document has been carefully reviewed, there may still be some phonetic and typographical errors. These areas are purely typographical due to imperfections of the software programs, and do not reflect any compromise in the patient's medical care. Plan discussed with: Patient, Other (RN) My Orders Orders - ENDY BOX NP Procedure Category Date Status Time Risperidone Tablet PHA 03/19/25 In Process (Risperdal Tablet) 10:00 Benztropine Tablet PHA 03/19/25 In Process (Cogentin Tablet) 10:00 Basic Metabolic Panel LAB 03/20/25 Verified 04:00 Complete Blood Count LAB 03/20/25 Verified 04:00 Date of Service: Mar 19, 2025 Billing Provider: ENDY BOX NP Common Visit Codes: 73145-[id number] INP/OBS CARE(HIGH) ENDY BOX NP Mar 19, 2025 14:00
[2025-03-19] MEDS: SODIUM ZIRCONIUM CYCL 10 GM PAK PO ONE (15:24)
[2025-03-20 01:00] VITALS: BP 135/64; PULSE 74; RESP 18; TEMP 97.9; O2SAT 96
[2025-03-20 05:00] VITALS: BP 123/72; PULSE 75; TEMP 97.9; O2SAT 98
[2025-03-20 06:25] LABS: Chloride 105 mmol/L (98-107); Potassium 4.3 mmol/L (3.5-5.1); Sodium 139 mmol/L (136-145)
[2025-03-20 06:26] LABS: Anion Gap 8 (5-15); Carbon Dioxide 26 mmol/L (20-31)
[2025-03-20 06:27] LABS: Calcium 8.8 mg/dL (8.7-10.4)
[2025-03-20 06:31] LABS: Basophils # (auto) 0.2 10 ^3/uL (0-0.2); Eosinophils # (auto) 0.4 10 ^3/uL (0-0.8); Hemoglobin 12.6 g/dL (12.2-16.2); Mean Corpuscular Hemoglobin 23.9 pg (28.0-32.0); Mean Corpuscular Hgb Conc. 31.8 g/dL (32.0-36.0)
[2025-03-20 06:32] LABS: BUN/Creatinine Ratio 14.3 (10.0-20.0); Blood Urea Nitrogen 9 mg/dL (9-23); Glucose 85 mg/dL (74-106)
[2025-03-20 06:35] LABS: Basophils % (auto) 1.1 % (0.0-2.0); Eosinophils % (auto) 2.3 % (0.0-7.0); Hematocrit 39.5 % (36.0-46.0); Lymphocytes # (auto) 4.6 10 ^3/uL (0.4-5.4); Lymphocytes % (auto) 25.3 % (10.0-50.0); Mean Corpuscular Volume 75.2 fL (80.0-100.0); Monocytes # (auto) 1.5 10 ^3/uL (0-1.3); Neutrophils # (auto) 11.5 10 ^3/uL (1.6-8.6); Neutrophils % (auto) 63.3 % (37.0-80.0); Nucleated Red Blood Cells % 0.1 %; Platelet Count (auto) 520 10^3/uL (140-450); Red Blood Cells 5.26 10^6/uL (4.0-5.20); Red Cell Distribution Width 17.3 % (11.8-14.3); White Blood Cell 18.2 10^3/uL (4.4-10.8)
[2025-03-20 08:00] VITALS: PULSE 86; RESP 18; O2SAT 96
[2025-03-20 09:00] VITALS: BP 106/78; PULSE 65; RESP 15; TEMP 97; O2SAT 98
--- NOTE | 2025-03-20 10:20 | DVHDS2 ---
Discharge Summary Date of Admission Mar 18, 2025 at 07:13 Date of Discharge: Mar 20, 2025 Admitting Diagnosis Acute metabolic encephalopathy Labs/Diagnostic Data: Laboratory Results Test 03/20/25 05:44 03/18/25 08:25 03/18/25 00:15 03/17/25 23:30 White Blood Count 18.2 10^3/uL (4.4-10.8) Red Blood Count 5.26 10^6/uL (4.0-5.20) Hemoglobin 12.6 g/dL (12.2-16.2) Hematocrit 39.5 % (36.0-46.0) Mean Corpuscular Volume 75.2 fL (80.0-100.0) Mean Corpuscular Hemoglobin 23.9 pg (28.0-32.0) Mean Corpuscular Hemoglobin Concent 31.8 g/dL (32.0-36.0) Red Cell Distribution Width 17.3 % (11.8-14.3) Platelet Count 520 10^3/uL (140-450) Mean Platelet Volume 9.1 fL (6.9-10.8) Neutrophils (%) (Auto) 63.3 % (37.0-80.0) Lymphocytes (%) (Auto) 25.3 % (10.0-50.0) Monocytes (%) (Auto) 8.0 % (0.0-12.0) Eosinophils (%) (Auto) 2.3 % (0.0-7.0) Basophils (%) (Auto) 1.1 % (0.0-2.0) Neutrophils # (Auto) 11.5 10 ^3/uL (1.6-8.6) Lymphocytes # (Auto) 4.6 10 ^3/uL (0.4-5.4) Monocytes # (Auto) 1.5 10 ^3/uL (0-1.3) Eosinophils # (Auto) 0.4 10 ^3/uL (0-0.8) Basophils # (Auto) 0.2 10 ^3/uL (0-0.2) Nucleated Red Blood Cells 0.1 % Sodium Level 139 mmol/L (136-145) Potassium Level 4.3 mmol/L (3.5-5.1) Chloride Level 105 mmol/L (98-107) Carbon Dioxide Level 26 mmol/L (20-31) Anion Gap 8 (5-15) Blood Urea Nitrogen 9 mg/dL (9-23) Creatinine 0.63 mg/dL (0.550-1.02) Glomerular Filtration Rate Calc 124 mL/min (>90) BUN/Creatinine Ratio 14.3 (10.0-20.0) Serum Glucose 85 mg/dL (74-106) Calcium Level 8.8 mg/dL (8.7-10.4) Urine Test Negative (Negative) Lactic Acid Level 1.9 mmol/L (0.4-2.0) Urine Color Yellow (Yellow) Urine Clarity Clear (Clear) Urine pH 5.5 (5.0-9.0) Urine Specific [place] 1.031 (1.001-1.035) Urine Protein Trace (Negative) Urine Ketones Trace (Negative) Urine Blood 1+ /uL (Negative) Urine Nitrite Negative (Negative) Urine Bilirubin Negative (Negative) Urine Urobilinogen Normal mg/dL (Negative) Urine Leukocyte Esterase Negative /uL (Negative) Urine RBC 2 /hpf (0 - 4) Urine Microscopic WBC 2 /HPF (0-5) Urine Squamous Epithelial Cells Few /hpf (<5) Urine Bacteria None seen /hpf (None Seen) Urine Mucus Few (None Seen) Urine Glucose Normal mg/dL (Normal) Urine Opiates Screen Neg (NEGATIVE) Urine Fentanyl Screen Neg (NEGATIVE) Urine Barbiturates Screen Neg (NEGATIVE) Urine Phencyclidine Screen Neg (NEGATIVE) Urine Amphetamines Screen Neg (NEGATIVE) Urine Benzodiazepines Screen Neg (NEGATIVE) Urine Cocaine Screen Neg (NEGATIVE) Urine Cannabinoids Screen Neg (NEGATIVE) Test 03/17/25 22:06 Salicylates Level < 3.0 mg/dL (-30) Acetaminophen Level < 2.0 UG/ML (10.0-20.0) Plasma/Serum Blood Alcohol < 3.0 mg/dL (<10) Other Laboratory Tests 03/20/25 05:44 Brief Hx & Hospital Course: History of Present Illness The patient is a 29-year-old female with a known past medical history of schizophrenia and bipolar disorder. She presents to the ED with complaint of headaches that began a few hours ago. She describes the headache as persistent and associated with nausea. She reports that "C SF is draining from my nose" down no objective evidence of CSF rhinorrhea is confirmed at this time. The patient admits to auditory hallucination involving both male and female voices. She describes the voices as accusatory, telling her that she has pedophile and engaging in verbal harassment. She denies visual hallucination or suicidal/homicidal ideation. No recent trauma is reported. She resides in a boarding care facility and appears to be psychiatrically to compensating. Course of hospitalization: Patient was started on empiric antibiotic therapy. Medication reconciliation was performed with reinstitution of the patient's home psychiatric medications. Patient states that she has no suicidal ideation, or hallucinations Deeming harm to herself or others. Patient's cultures has been negative thus far. White blood cell count is improving, with the patient remaining without a left shift. Patient has been afebrile denies any symptoms. Patient is agreeable to be discharged home and continue home medications. She will follow up with her PCP in 1-2 weeks. All questions answered. Physical examination General: Alert and Oriented x3. No acute distress. Well-nourished. Eyes: EOMI. Anicteric. HENT: Moist mucous membranes. Lungs: Clear to auscultation bilaterally. No accessory muscle use. Cardiovascular: Regular rate and rhythm. No murmur. No JVD. Abdomen: Soft, non-tender and non-distended. No palpable masses. Extremities: No edema. Non-tender. Skin: No rashes or lesions. Warm. Neurologic: No focal neurological deficits. CN II-XII grossly intact, but not individually tested. Psychiatric: Cooperative. Appropriate mood and affect. Total time spent with patient discussing and formulating plan of care: 35 minutes. This medical document was created using an electronic medical record system with [employer] dictation system. Although this document has been carefully reviewed, there may still be some phonetic and typographical errors. These areas are purely typographical due to imperfections of the software programs, and do not reflect any compromise in the patient's medical care. Condition at Discharge: Fair Final Diagnosis/Problems List Leukocytosis, sirs without organ dysfunction Secondary diagnosis: Metabolic encephalopathy secondary to schizophrenia -leukocytosis, ruled out sepsis -schizophrenia -acute psychosis -obesity Discharge Disposition: Home Discharge Instruct/Medications Diet: Regular Activity: No Restrictions, As Tolerated Follow Up/Referral: Follow up with PCP in 1-2 weeks Medications: Resume all home medication 36 Discharge Statement: "Patient was advised to return to the ER or call 911 if any headaches, dizziness, shortness of breath, chest pain, abdominal pain, bleeding, fevers, or worsening of medical condition. Patient was counseled about treatment plan, medications, possible side effects, patientverbalized understanding. All questions were answered to the best of my ability. This discharge took greater then 30 minutes in planning, reviewing documentation, counseling the patient, and discussing with other team members." ASSESSMENT ASSESSMENT Assessment Leukocytosis, sirs without organ dysfunction Date of Service: Mar 20, 2025 Billing Provider: ENDY BOX NP Common Visit Codes: 18187-DVY/OBS DISCH DAY >30min ENDY BOX NP Mar 20, 2025 10:20
[2025-03-20 13:00] VITALS: BP 106/74; PULSE 79; RESP 15; TEMP 97.6; O2SAT 95
== END 2025-03-20 13:30 | disposition home or self-care (01) | DRG 71 ==
LOC: EDBD 21:26 → ER 21:26 → OVERFLOW 03-18 07:13 → WEST WING 03-18 10:10 → EAST 03-18 14:40
PROVIDERS: ADMIT Nurse Practitioner Acute Care; ATTEND Nurse Practitioner Acute Care
DX: G93.41 Metabolic encephalopathy (principal); R65.10 Systemic inflammatory response syndrome (SIRS) of non-infectious origin without acute organ dysfunction; F20.9 Schizophrenia, unspecified; D72.829 Elevated white blood cell count, unspecified; E66.9 Obesity, unspecified; F29 Unspecified psychosis not due to a substance or known physiological condition; F31.9 Bipolar disorder, unspecified; Z88.1 Allergy status to other antibiotic agents; Z68.29 Body mass index [BMI] 29.0-29.9, adult
CPT/HCPCS: 36415; 70450; 71045; 80048; 80307; 80320; 80329; 81001; 81025; 83605; 85025; 87040; 87086; G0378; J0692

== ENCOUNTER 2025-04-20 05:37 | Emergency (ER) | payer OTHER ==
[~2025-04-20] VITALS: Ht 160 cm; Wt 104.0 kg
[~2025-04-20 05:37] MED LIST: BENZ1TAB6; DIVA1TAB58 PO; DIVA250T12 PO; RISP1TAB63 PO; TRAZ-227 PO
--- NOTE | 2025-04-20 06:33 | ED.PDOC ---
History of Present Illness HPI Comments 29 year old female with a Hx of Schizophrenia and Bipolar was BIBA for the c/c of Anxiety and Insomnia. Per EMS pt was found in the street walking around with her suitcase after stating that she was "kicked out of her [facility]". Pt is noted to be a poor historian. Pt notes of Marijuana and Alcohol use. No other associated symptoms, modifiers, recent injuries or sick contacts present at this time. Chief Complaint: Mental Health Time Seen by MD: 06:03 Reviewed Notes: Nurses Notes, Production Cost Estimator Notes, Medications, Allergies Allergies: Coded Allergies: Egg-derived Products (Verified Allergy, Unknown, 03/18/25) Vancomycin (Verified Allergy, Unknown, 03/17/25) Home Meds Reported Medications Risperidone (Risperidone) 1 Mg Tab, TAB PO 03/18/25 Benztropine Mesylate (Benztropine Mesylate) 1 Mg Tab 03/18/25 Divalproex Sodium (Divalproex Sodium) 250 Mg Tab, TAB PO DAILY 03/18/25 Divalproex Sodium (Divalproex Sodium Dr) 250 Mg Tab, 1 TAB PO BID 03/18/25 Trazodone Hcl (Trazodone Hcl) 50 Mg Tab, 1 TAB PO DAILY 03/18/25 Information Source: Patient, Emergency Med Personnel Mode of Arrival: EMS Severity: Mild Timing: Hours Duration: Since onset, Hours Prehospital treatment: None Past Medical History PAST MEDICAL HISTORY: Schizophrenia Surgical History: Denies all surgeries REPORTS DEVELOPER History: Denies all REPORTS DEVELOPER Hx Family History Family History: Reviewed,noncontributory to illness Social History Smoker: Non-Smoker Alcohol: Denies ETOH Use Drugs: Denies Drug Use Lives In: Home Constitutional: denies: chills, diaphoresis, fatigue, fever, malaise, sweats, weakness, others EENTM: denies: blurred vision, double vision, ear bleeding, ear discharge, ear drainage, ear pain, ear ringing, eye pain, eye redness, hearing loss, mouth pain, mouth swelling, nasal discharge, nose bleeding, nose congestion, nose pain, photophobia, tearing, throat pain, throat swelling, voice changes, others Respiratory: denies: cough, hemoptysis, orthopnea, SOB at rest, shortness of breath, SOB with excertion, stridor, wheezing, others Cardiovascular: denies: chest pain, dizzy spells, diaphoresis, Dyspnea on exertion, edema, irregular heart beat, left arm pain, lightheadedness, palpitations, PND, syncope, others Gastrointestinal: denies: abdomen distended, abdominal pain, blood streaked bowels, constipated, diarrhea, dysphagia, difficulty swallowing, hematemesis, m sami, nausea, poor appetite, poor fluid intake, rectal bleeding, rectal pain, vomiting, others Genitourinary: denies: abnormal vagina bleeding, burning, dyspareunia, dysuria, flank pain, frequency, hematuria, incontinence, pain, , vagina discharge, urgency, others Neurological: denies: dizziness, fainting, headache, left sided numbness, left sided weakness, numbness, paresthesia, pre-existing deficit, right sided numbness, right sided weakness, seizure, speech problems, tingling, tremors, weakness, others Musculoskeletal: denies: back pain, gout, joint pain, joint swelling, muscle pain, muscle stiffness, neck pain, others Integumetry: denies: bruises, change in color, change in hair/nails, dryness, laceration, lesions, lumps, rash, wounds, others Allergic/Immunocompromised: denies: Difficulty Healing, Frequent Infections, Hives, Itching, others Hematologic/Lymphatic: denies: anemia, blood clots, easy bleeding, easy bruising, swollen glands, others Endocrine: denies: excessive hunger, excessive sweating, excessive thirst, excessive urination, flushing, intolerance to cold, intolerance to heat, unexpla ined weight gain, unexplained weight loss, others Psychiatric: reports: anxiety, sleepless; denies: bipolar disorder, depression, hopeless, panic disorder, schizophrenia, suicidal, others All Other Systems: Reviewed and Negative Physical Exam General Appearance: Moderate Distress, Normal HEENT: Normal ENT Inspection, Pharynx Normal, TMs Normal Neck: Full Range of Motion, Non-Tender, Normal, Normal Inspection Respiratory: Chest Non-Tender, Lungs Clear, No Accessory Muscle Use, No Respiratory Distress, Normal Breath Sounds Cardiovascular: No Edema, No JVD, No Murmur, No Gallop, Normal Peripheral Pulses, Regular Rate/Rhythm Breast Exam: Deferred Gastrointestinal: No Organomegaly, Non Tender, No Pulsatile Mass, Normal Bowel Sounds, Soft Genitalia: Deferred Pelvic: Deferred Rectal: Deferred Extremities: No calf tenderness, Normal capillary refill, Normal inspection, Normal range of motion, Non-tender, No pedal edema Musculoskeletal : Apperance: Normal Neurologic: Alert, preschool adviser II-XII nml as Tested, No Motor Deficits, Normal Affect, Normal Mood, No Sensory Deficits Cerebellar Function: Normal Reflexes: Normal Skin: Dry, Normal Color, Warm Peripheral Pulses: 3+ Radial (R), 3+ Radial (L) Lymphatic: No Adenopathy Was a procedure done? Was a procedure done?: No Differential Dx Considerations may include: Anxiety X-Ray, Labs, Meds, VS Vital Signs Date Time Temp Pulse Resp B/P (MAP) Pulse Ox O2 Delivery O2 Flow Rate FiO2 04/20/25 06:37 110 20 98 Room Air* 0 21 04/20/25 06:30 98.0 110 20 141/98 (112) 98 98.0 04/20/25 05:37 97.8 122 18 146/105 (119) 98 97.8 Patient alert. History of anxiety. Vitals stable. Answering questions. Saturation pristine on room air. No leg swelling. No shortness a breath. No chest pain. Denies suicidal homicidal ideation. Explained to the patient. Was told to follow up with her primary care physician. Was told to come back if there is any problem. Time of 1ST Reevaluation: 06:59 Reevaluation 1ST: Improved Patient Education/Counseling: Diagnosis, Treatment, Need For Follow Up Family Education/Counseling: No Family Present SEPSIS Sepsis Screen Date sepsis recognized/suspect: Apr 20, 2025 Time Sepsis recognized/suspect: 0537 Recent Procedure: No On Antibiotic Therapy: No Respiratory Rate >20: No Heart Rate >90: No Temp<36 C (96.8 F) or >38.3 C: No SBP <90 or MAP <65 mmHG: No New Acute Mental Status Change: No Is the patient on CPAP, BIPAP,: No Physician Orders Urinalysis (04/20/25 06:32) Vital Signs Date Time Temp Pulse Resp B/P (MAP) Pulse Ox O2 Delivery O2 Flow Rate FiO2 04/20/25 06:37 110 20 98 Room Air* 0 21 04/20/25 06:30 98.0 110 20 141/98 (112) 98 98.0 04/20/25 05:37 97.8 122 18 146/105 (119) 98 97.8 Departure 1 Departure Time of Disposition: 07:58 Impression: Primary Impression: Anxiety Disposition: 01 HOME / SELF CARE / HOMELESS Condition: Good Discharged With: Self Critical Care Note Critical Care Time?: No Stability Stability form required: No Heart Score Heart Score: Heart Score Response (Comments) Value History N/A 0 EKG N/A 0 Age N/A 0 Risk Factors N/A 0 Troponin N/A 0 Total 0 I personally scribed for SEAMUS HORTA MD ([email or web address]) on 04/20/25 at 06:33. Electronically submitted by John Lawrence ([email or web address]). SEAMUS HORTA MD Apr 20, 2025 06:33
[2025-04-20 06:37] VITALS: PULSE 110; RESP 20; O2SAT 98
[2025-04-20 09:00] VITALS: BP 147/98; PULSE 99; RESP 14; TEMP 98.9; O2SAT 97
== END 2025-04-20 10:10 | disposition home or self-care (01) ==
LOC: ER 05:37 → EDBD 05:37 → ER 10:10
DX: F41.9 Anxiety disorder, unspecified (principal); F20.9 Schizophrenia, unspecified; G47.00 Insomnia, unspecified; Z79.899 Other long term (current) drug therapy; Z88.1 Allergy status to other antibiotic agents; Z91.012 Allergy to eggs

== ENCOUNTER 2025-04-28 02:58 | Inpatient (IN) | payer MEDICARE, OTHER ==
[~2025-04-28] VITALS: Ht 152.4 cm; Wt 113.0 kg
[2025-04-28] VITALS (7 sets, daily range): BP systolic 128–145; BP diastolic 62–84; PULSE 72–85; RESP 17–18; TEMP 97.5–99.6; O2SAT 93–99
[2025-04-28 03:30] LABS: Chloride 107 mmol/L (98-107); Potassium 4.3 mmol/L (3.5-5.1); Sodium 140 mmol/L (136-145)
[2025-04-28 03:31] LABS: Anion Gap 7 (5-15); Calcium 9.1 mg/dL (8.7-10.4); Carbon Dioxide 26 mmol/L (20-31)
--- NOTE | 2025-04-28 03:31 | ED.PDOC ---
Psychiatric HPI Comments 29-year-old female with a history of bipolar disorder and schizophrenia brought in by EMS from her alf for evaluation of abdominal pain. Patient states she believes she is and is in labor. She is complaining of pelvic pain and a stretching sensation" in her genital area. She denies any vaginal bleeding, fluid discharge, fever, nausea, vomiting, diarrhea, dysuria or other symptoms. She does not appear to be in distress. Patient is a very difficult historian, stating she thinks she is because she had the same symptoms with her prior pregnancies. Chief Complaint: Mental Health Time Seen by MD: 03:30 Reviewed Notes: Window Tinter Notes Information Source: Patient, Emergency Med Personnel Mode of Arrival: EMS Severity: Unable to Care for Self, Unable to Control Self Severity of Pain: Moderate Severity of Mental Status: Moderate Severity of Symptoms: Moderate Timing: Hours Duration: Since onset Presents with: Anxiety, Unclear Thinking, Other (Schizophrenia) Circumstance: Medical Clearance, Causing a Disturbance History of: Schizophrenia, Bipolar Associated signs and symptoms: Confusion Past Medical History PAST MEDICAL HISTORY: Schizophrenia Past Medical History (Other): Bipolar disorder Surgical History: Denies all surgeries ALUMINUM SHEET CUTTER History: No Pertinent ALUMINUM SHEET CUTTER History Family History Family History: Reviewed,noncontributory to illness Social History Smoker: Non-Smoker Alcohol: Denies ETOH Use Drugs: Denies Drug Use Lives In: Assisted Care Constitutional: denies: chills, diaphoresis, fatigue, fever, malaise, sweats, weakness, others EENTM: denies: blurred vision, double vision, ear bleeding, ear discharge, ear drainage, ear pain, ear ringing, eye pain, eye redness, hearing loss, mouth pain, mouth swelling, nasal discharge, nose bleeding, nose congestion, nose pain, photophobia, tearing, throat pain, throat swelling, voice changes, others Respiratory: denies: cough, hemoptysis, orthopnea, SOB at rest, shortness of breath, SOB with excertion, stridor, wheezing, others Cardiovascular: denies: chest pain, dizzy spells, diaphoresis, Dyspnea on exertion, edema, irregular heart beat, left arm pain, lightheadedness, palpitations, PND, syncope, others Gastrointestinal: denies: abdomen distended, abdominal pain, blood streaked bowels, constipated, diarrhea, dysphagia, difficulty swallowing, hematemesis, melena, nausea, poor appetite, poor fluid intake, rectal bleeding, rectal pain, vomiting, others Genitourinary: denies: abnormal vagina bleeding, burning, dyspareunia, dysuria, flank pain, frequency, hematuria, incontinence, pain, , vagina discharge, urgency, others Neurological: denies: dizziness, fainting, headache, left sided numbness, left sided weakness, numbness, paresthesia, pre-existing deficit, right sided numbness, right sided weakness, seizure, speech problems, tingling, tremors, weakness, others Musculoskeletal: denies: back pain, gout, joint pain, joint swelling, muscle pain, muscle stiffness, neck pain, others Integumetry: denies: bruises, change in color, change in hair/nails, dryness, laceration, lesions, lumps, rash, wounds, others Allergic/Immunocompromised: denies: Difficulty Healing, Frequent Infections, Hives, Itching, others Hematologic/Lymphatic: denies: anemia, blood clots, easy bleeding, easy bruising, swollen glands, others Endocrine: denies: excessive hunger, excessive sweating, excessive thirst, excessive urination, flushing, intolerance to cold, intolerance to heat, unexplained weight gain, unexplained weight loss, others Psychiatric: reports: anxiety, bipolar disorder, schizophrenia; denies: depression, hopeless, panic disorder, sleepless, suicidal, others Physical Exam General Appearance: No Apparent Distress, Obese HEENT: Other (Pupils and face symmetric. Moist mucous membranes.) Neck: Full Range of Motion, Normal Inspection Respiratory: Lungs Clear, No Accessory Muscle Use, No Respiratory Distress, Normal Breath Sounds Cardiovascular: No Edema, No JVD, Regular Rate/Rhythm Breast Exam: Deferred Gastrointestinal: LLQ, RLQ, Soft, Suprapubic, Tenderness Genitalia: Deferred Pelvic: Deferred Rectal: Deferred Extremities: Normal inspection, Normal range of motion, Non-tender, No pedal edema Neurologic: Alert, Normal Affect, Normal Mood, Other (Ambulatory) Cerebellar Function: NOT DONE Reflexes: NOT DONE Skin: Dry, Normal Color, Warm Lymphatic: NOT DONE Was a procedure done? Was a procedure done?: No Psych Differential Dx Psych. Differential Dx: Anxiety, Bipolar Disorder, Schizoprenia Other Differentail Dx , ectopic , miscarriage, appendicitis, colitis, diverticular disease, gastroenteritis, kidney stone, bowel obstruction, among others X-Ray, Labs, Meds, VS Vital Signs Date Time Temp Pulse Resp B/P (MAP) Pulse Ox O2 Delivery O2 Flow Rate FiO2 04/28/25 06:58 89 16 148/80 04/28/25 06:22 98 Room Air* 0 21 04/28/25 06:17 99.8 93 16 148/80 (102) 95 99.8 04/28/25 02:58 98.6 86 16 112/84 (93) 100 98.6 Lab Test 04/28/25 05:12 04/28/25 03:14 Range/Units Urine Color Yellow Yellow Urine Clarity Clear Clear Urine pH 5.5 5.0-9.0 Urine Specific [place] 1.033 1.001-1.035 Urine Protein Negative Negative Urine Ketones Negative Negative Urine Blood Negative Negative /uL Urine Nitrite Negative Negative Urine Bilirubin Negative Negative Urine Urobilinogen Normal Negative mg/dL Urine Leukocyte Esterase Negative Negative /uL Urine RBC 2 0 - 4 /hpf Urine Microscopic WBC 2 0-5 /HPF Urine Squamous Epithelial Cells Few <5 /hpf Urine Bacteria None seen None Seen /hpf Urine Mucus Few None Seen Urine Glucose Normal Normal mg/dL Urine Test Negative Negative White Blood Count 20.5 H 4.4-10.8 10^3/uL Red Blood Count 4.93 4.0-5.20 10^6/uL Hemoglobin 11.7 L 12.2-16.2 g/dL Hematocrit 36.8 36.0-46.0 % Mean Corpuscular Volume 74.7 L 80.0-100.0 fL Mean Corpuscular Hemoglobin 23.7 L 28.0-32.0 pg Mean Corpuscular Hemoglobin Concent 31.8 L 32.0-36.0 g/dL Red Cell Distribution Width 18.5 H 11.8-14.3 % Platelet Count 566 H 140-450 10^3/uL Mean Platelet Volume 8.2 6.9-10.8 fL Neutrophils (%) (Auto) 58.7 37.0-80.0 % Lymphocytes (%) (Auto) 31.5 10.0-50.0 % Monocytes (%) (Auto) 7.9 0.0-12.0 % Eosinophils (%) (Auto) 0.8 0.0-7.0 % Basophils (%) (Auto) 1.1 0.0-2.0 % Neutrophils # (Auto) 12.0 H 1.6-8.6 10 ^3/uL Lymphocytes # (Auto) 6.5 H 0.4-5.4 10 ^3/uL Monocytes # (Auto) 1.6 H 0-1.3 10 ^3/uL Eosinophils # (Auto) 0.2 0-0.8 10 ^3/uL Basophils # (Auto) 0.2 0-0.2 10 ^3/uL Nucleated Red Blood Cells 0.2 % Sodium Level 140 136-145 mmol/L Potassium Level 4.3 3.5-5.1 mmol/L Chloride Level 107 98-107 mmol/L Carbon Dioxide Level 26 20-31 mmol/L Anion Gap 7 5-15 Blood Urea Nitrogen 13 9-23 mg/dL Creatinine 0.70 0.550-1.02 mg/dL Glomerular Filtration Rate Calc 121 >90 mL/min BUN/Creatinine Ratio 18.6 10.0-20.0 Serum Glucose 106 74-106 mg/dL Hemoglobin A1c Pending Calcium Level 9.1 8.7-10.4 mg/dL Beta HCG, Quantitative 0.8 L 1.5-4.2 mIU/mL Current Medications Medications (Trade) Dose Ordered Sig/Miguel Angel Route Start Time Stop Time Status Last Admin Sodium Chloride 1,000 ml @ 1,000 mls/hr Q1H ONCE IV 04/28/25 05:45 04/28/25 06:44 DC 04/28/25 06:52 Morphine Sulfate 2 mg ONCE ONCE IV 04/28/25 05:45 04/28/25 05:46 DC 04/28/25 06:58 Ondansetron HCl (Zofran) 4 mg ONCE ONCE IV 04/28/25 05:45 04/28/25 05:46 DC 04/28/25 06:53 PROCEDURE(s): ABPL - CT AB PEL WO CON-NO ORAL OR IV REASON: abd/pelvic pain ORDER NUMBER(s): [id number], ACCESSION NUMBER(s): [id number] Exam: CT CT AB PEL WO CON-NO ORAL OR IV History: abd/pelvic pain Comparison Study: None Technique: Multidetector spiral CT of the abdomen was performed from lung bases to pubic symphysis. Imaging was performed without IV contrast. Axial, coronal and sagittal multiplanar reformats were obtained from the axial data set by the technologist. Radiation Dose : 1. Abdomen/Pelvis: CTDIvol 19.12 mGy, DLP 1178.05 mGy*cm. Findings: Evaluation of solid organs is limited due to lack of intravenous contrast use. Lung Bases: No acute or significant lung base finding. Normal heart size. No pleural or pericardial effusion. Liver: The liver is normal in size. No focal lesions. Gallbladder and Biliary Tree: Unremarkable Spleen: Unremarkable Pancreas: The pancreas is grossly normal in appearance. Adrenal Glands: Unremarkable Kidneys: Kidneys are grossly normal without calculi or hydronephrosis. Bladder: Grossly unremarkable for degree of distention. Bowel: The stomach is grossly normal in appearance. Small bowel and colon are normal in caliber and distribution. The appendix is normal. Ascites: Absent Lymphadenopathy: Multiple mild enlarged retroperitoneal lymph nodes measuring up to 9 mm in short axis dimension. Mildly enlarged bilateral inguinal lymph nodes are also noted. Abdominal Wall and Mesentery: 1.5 cm right adnexal cystic structure near water attenuation, likely representing an ovarian cyst. Otherwise, unremarkable. Vasculature: The visualized abdominal aorta is normal in size and caliber. Evaluation of abdominal and pelvic vessels is limited due to lack of intravenous contrast. Pelvic Organs: Unremarkable Musculoskeletal: No aggressive focal bony lesions, acute fractures or dislocation. IMPRESSION: 1. No acute abdominal or pelvic findings. 2. Nonspecific retroperitoneal and bilateral inguinal lymphadenopathy. 3. Probable right ovarian cyst. Radiation optimization: All CT scans at this facility use at least one of these dose optimization techniques: automated exposure control mA and/or kV a djustment per patient size (includes targeted exams where dose is matched to clinical indication) or iterative reconstruction. X-Ray, Labs, Meds, VS Comment 29-year-old female with a history of bipolar disorder and schizophrenia brought in by EMS from her alf complaining of abdominal pain, stating she believes she is in labor Vitals unremarkable Exam remarkable for lower abdominal tenderness Rhythm strip independently interpreted by me: Sinus rhythm, rate 86, no ectopy. CBC remarkable for WBC 20.5, platelets 566, basic metabolic panel unremarkable, serum quantitative hCG 0.8, UA unremarkable, urine negative CT abdomen and pelvis IMPRESSION: 1. No acute abdominal or pelvic findings. 2. Nonspecific retroperitoneal and bilateral inguinal lymphadenopathy. 3. Probable right ovarian cyst. Patient treated with the following in the ED: 1 L 0.9 normal saline IV bolus, morphine 2 mg IV, Zofran 4 mg IV On re-evaluation, patient is resting comfortably with stable vitals. Plan is to admit for pain control. Time of 1ST Reevaluation: 03:27 Reevaluation 1ST: Unchanged Patient Education/Counseling: Diagnosis, Treatment Family Education/Counseling: No Family Present Departure 1 Departure Time of Disposition: 06:00 Impression: Primary Impression: Abdominal pain Additional Impression: Leukocytosis Disposition: ADMITTED INPATIENT Admit to: Med Surg Condition: Guarded Critical Care Note Critical Care Time?: No Stability Stability form required: No Heart Score Heart Score: Heart Score Response (Comments) Value History N/A 0 EKG N/A 0 Age N/A 0 Risk Factors N/A 0 Troponin N/A 0 Total 0 I personally scribed for MELVI ABERNATHY MD ([email or web address]) on 04/28/25 at 03:31. Electronically submitted by Mulugeta Bynum ([facility]). MELVI ABERNATHY MD Apr 28, 2025 03:31
[2025-04-28 03:36] LABS: BUN/Creatinine Ratio 18.6 (10.0-20.0); Blood Urea Nitrogen 13 mg/dL (9-23); Hematocrit 36.8 % (36.0-46.0); Hemoglobin 11.7 g/dL (12.2-16.2); Mean Corpuscular Hemoglobin 23.7 pg (28.0-32.0); Mean Corpuscular Volume 74.7 fL (80.0-100.0); Nucleated Red Blood Cells % 0.2 %
[2025-04-28 03:37] LABS: Glucose 106 mg/dL (74-106)
[2025-04-28 05:29] LABS: Urine Protein, UAD Negative (Negative)
--- NOTE | 2025-04-28 06:19 | DVH ---
Exam: CT CT AB PEL WO CON-NO ORAL OR IV History: abd/pelvic pain Comparison Study: None Technique: Multidetector spiral CT of the abdomen was performed from lung bases to pubic symphysis. I maging was performed without IV contrast. Axial, coronal and sagittal multiplanar reformats were obta ined from the axial data set by the technologist. Radiation Dose : 1. Abdomen/Pelvis: CTDIvol 19.12 mGy, DLP 1178.05 mGy*cm. Findings: Evaluation of solid organs is limited due to lack of intravenous contrast use. Lung Bases: No acute or significant lung base finding. Normal heart size. No pleural or pericardial effusion. Liver: The liver is normal in size. No focal lesions. Gallbladder and Biliary Tree: Unremarkable Spleen: Unremarkable Pancreas: The pancreas is grossly normal in appearance. Adrenal Glands: Unremarkable Kidneys: Kidneys are grossly normal without calculi or hydronephrosis. Bladder: Grossly unremarkable for degree of distention. Bowel: The stomach is grossly normal in appearance. Small bowel and colon are normal in caliber and d istribution. The appendix is normal. Ascites: Absent Lymphadenopathy: Multiple mild enlarged retroperitoneal lymph nodes measuring up to 9 mm in short axi s dimension. Mildly enlarged bilateral inguinal lymph nodes are also noted. Abdominal Wall and Mesentery: 1.5 cm right adnexal cystic structure near water attenuation, likely re presenting an ovarian cyst. Otherwise, unremarkable. Vasculature: The visualized abdominal aorta is normal in size and caliber. Evaluation of abdominal a nd pelvic vessels is limited due to lack of intravenous contrast. Pelvic Organs: Unremarkable Musculoskeletal: No aggressive focal bony lesions, acute fractures or dislocation. IMPRESSION: 1. No acute abdominal or pelvic findings. 2. Nonspecific retroperitoneal and bilateral inguinal lymphadenopathy. 3. Probable right ovarian cyst. Radiation optimization: All CT scans at this facility use at least one of these dose optimization lakisha hniques: automated exposure control mA and/or kV adjustment per patient size (includes targeted exam s where dose is matched to clinical indication) or iterative reconstruction.
[2025-04-28] MEDS: SODIUM CHLORIDE 0.9% 1,000 ML IV ONE (06:52)
[2025-04-28] MEDS: ONDANSETRON HCL 4 MG/2 ML VIAL IV ONE (06:53)
[2025-04-28] MEDS: MORPHINE SULFATE INJ 2 MG/ml SYRG IV ONE (06:58)
--- NOTE | 2025-04-28 07:12 | DVH ---
CHEST RADIOGRAPH Indication: r/o pna Technique: Single frontal view of the chest was obtained Comparison: None FINDINGS: The cardiac silhouette is unremarkable. The lungs demonstrate no pulmonary airspace consolidation. Th e pulmonary vasculature is unremarkable. There is no pleural effusion.. There is no pneumothorax. IMPRESSION: No pulmonary airspace consolidation.
[2025-04-28] MEDS ORDERED: ONDANSETRON HCL 4 MG/2 ML VIAL IV PRN (07:15)
[2025-04-28] MEDS ORDERED: ACETAMINOPHEN 325 MG TAB PO PRN (07:15)
[2025-04-28] MEDS ORDERED: MORPHINE SULFATE INJ 2 MG/ml SYRG IV PRN (07:15)
--- NOTE | 2025-04-28 07:35 | DVHHP2 ---
History of Present Illness Reason for Visit: Abdominal pain History of Present Illness Myrtle Landrum is a 29-year-old female with past medical history of schizophrenia and bipolar disease who presents to the ED with pelvic pain that started today. Patient reports the pain as 12/10 labor like feeling and constant. She reports that there are no triggering or alleviating factors. Patient also reports that she has a history of diabetes and possibly endometrial cancer. She reports that she stays in a intermediate in his compliant with her medications. The name of the intermediate she reports the [facility]'s room and board. Patient denies any chest pain, shortness of breath, fever, chills, lightheadedness, weakness, dizziness, recent trauma or injury, recent sick contacts, recent travels, nausea, vomiting, diarrhea, or urinary symptoms. Patient also reports that left wrist laceration when she was cutting in orange with a knife. She also reports that she drinks 1-2 beers per day. Upon examination patient continuously states that she is in labor and having a baby. Currently in an emotional state and continuously says that she is having a baby and asks when is she going to deliver. Psych: Bipolar, Schizophrenia Past Surgical History: None Family History: None Smoke: No ALCOHOL: occassional Drugs: None Lives: Other Domestic Violence: Neg Review of Systems Genitourinary: Other (Pelvic pain) Allergies: Coded Allergies: Egg-derived Products (Verified Allergy, Unknown, 03/18/25) Vancomycin (Verified Allergy, Unknown, 03/17/25) Medications Current Medications Medications Dose Ordered Sig/Miguel Angel Route Start Time Stop Time Status Last Admin Dose Admin Acetaminophen/ Hydrocodone Bitart 1 tab Q4HP PRN PO 04/28/25 07:15 UNV Ondansetron HCl 4 mg Q4HP PRN IV 04/28/25 07:15 UNV Acetaminophen 650 mg Q6HP PRN PO 04/28/25 07:15 UNV Morphine Sulfate 2 mg Q4HPRN PRN IV 04/28/25 07:15 UNV Exam Vital Signs Vital Signs Date Time Temp Pulse Resp B/P (MAP) Pulse Ox O2 Delivery O2 Flow Rate FiO2 04/28/25 06:58 89 16 148/80 04/28/25 06:22 98 Room Air* 0 21 04/28/25 06:17 99.8 99.8 General Appearance: Alert, Oriented X3, Cooperative, No acute distress HEENT: Atraumatic, PERRLA, EOMI, Mucous membr. moist/pink Respiratory: Normal air movement Cardiovascular: Regular rate, Normal S1, Normal S2 Abdominal: Soft Extremities: Normal pulses Neuro: Normal gait, Normal speech, Strength at 5/5 X4 ext, Normal tone, Sensation intact Psych/Mental Status: Other (Depressed mood and affect) Labs/Xrays Labs Test 04/28/25 05:12 04/28/25 03:14 Range/Units Urine Color Yellow Yellow Urine Clarity Clear Clear Urine pH 5.5 5.0-9.0 Urine Specific [place] 1.033 1.001-1.035 Urine Protein Negative Negative Urine Ketones Negative Negative Urine Blood Negative Negative /uL Urine Nitrite Negative Negative Urine Bilirubin Negative Negative Urine Urobilinogen Normal Negative mg/dL Urine Leukocyte Esterase Negative Negative /uL Urine RBC 2 0 - 4 /hpf Urine Microscopic WBC 2 0-5 /HPF Urine Squamous Epithelial Cells Few <5 /hpf Urine Bacteria None seen None Seen /hpf Urine Mucus Few None Seen Urine Glucose Normal Normal mg/dL Urine Test Negative Negative White Blood Count 20.5 H 4.4-10.8 10^3/uL Red Blood Count 4.93 4.0-5.20 10^6/uL Hemoglobin 11.7 L 12.2-16.2 g/dL Hematocrit 36.8 36.0-46.0 % Mean Corpuscular Volume 74.7 L 80.0-100.0 fL Mean Corpuscular Hemoglobin 23.7 L 28.0-32.0 pg Mean Corpuscular Hemoglobin Concent 31.8 L 32.0-36.0 g/dL Red Cell Distribution Width 18.5 H 11.8-14.3 % Platelet Count 566 H 140-450 10^3/uL Mean Platelet Volume 8.2 6.9-10.8 fL Neutrophils (%) (Auto) 58.7 37.0-80.0 % Lymphocytes (%) (Auto) 31.5 10.0-50.0 % Monocytes (%) (Auto) 7.9 0.0-12.0 % Eosinophils (%) (Auto) 0.8 0.0-7.0 % Basophils (%) (Auto) 1.1 0.0-2.0 % Neutrophils # (Auto) 12.0 H 1.6-8.6 10 ^3/uL Lymphocytes # (Auto) 6.5 H 0.4-5.4 10 ^3/uL Monocytes # (Auto) 1.6 H 0-1.3 10 ^3/uL Eosinophils # (Auto) 0.2 0-0.8 10 ^3/uL Basophils # (Auto) 0.2 0-0.2 10 ^3/uL Nucleated Red Blood Cells 0.2 % Sodium Level 140 136-145 mmol/L Potassium Level 4.3 3.5-5.1 mmol/L Chloride Level 107 98-107 mmol/L Carbon Dioxide Level 26 20-31 mmol/L Anion Gap 7 5-15 Blood Urea Nitrogen 13 9-23 mg/dL Creatinine 0.70 0.550-1.02 mg/dL Glomerular Filtration Rate Calc 121 >90 mL/min BUN/Creatinine Ratio 18.6 10.0-20.0 Serum Glucose 106 74-106 mg/dL Calcium Level 9.1 8.7-10.4 mg/dL Beta HCG, Quantitative 0.8 L 1.5-4.2 mIU/mL CHEST RADIOGRAPH Indication: r/o pna Technique: Single frontal view of the chest was obtained Comparison: None FINDINGS: The cardiac silhouette is unremarkable. The lungs demonstrate no pulmonary airspace consolidation. The pulmonary vasculature is unremarkable. There is no pleural effusion.. There is no pneumothorax. IMPRESSION: No pulmonary airspace consolidation. Exam: CT CT AB PEL WO CON-NO ORAL OR IV History: abd/pelvic pain Comparison Study: None Technique: Multidetector spiral CT of the abdomen was performed from lung bases to pubic symphysis. Imaging was performed without IV contrast. Axial, coronal and sagittal multiplanar reformats were obtained from the axial data set by the technologist. Radiation Dose : 1. Abdomen/Pelvis: CTDIvol 19.12 mGy, DLP 1178.05 mGy*cm. Findings: Evaluation of solid organs is limited due to lack of intravenous contrast use. Lung Bases: No acute or significant lung base finding. Normal heart size. No pleural or pericardial effusion. Liver: The liver is normal in size. No focal lesions. Gallbladder and Biliary Tree: Unremarkable Spleen: Unremarkable Pancreas: The pancreas is grossly normal in appearance. Adrenal Glands: Unremarkable Kidneys: Kidneys are grossly normal without calculi or hydronephrosis. Bladder: Grossly unremarkable for degree of distention. Bowel: The stomach is grossly normal in appearance. Small bowel and colon are normal in caliber and distribution. The appendix is normal. Ascites: Absent Lymphadenopathy: Multiple mild enlarged retroperitoneal lymph nodes measuring up to 9 mm in short axis dimension. Mildly enlarged bilateral inguinal lymph nodes are also noted. Abdominal Wall and Mesentery: 1.5 cm right adnexal cystic structure near water attenuation, likely representing an ovarian cyst. Otherwise, unremarkable. Vasculature: The visualized abdominal aorta is normal in size and caliber. Evaluation of abdominal and pelvic vessels is limited due to lack of intravenous contrast. Pelvic Organs: Unremarkable Musculoskeletal: No aggressive focal bony lesions, acute fractures or disl ocation. IMPRESSION: 1. No acute abdominal or pelvic findings. 2. Nonspecific retroperitoneal and bilateral inguinal lymphadenopathy. 3. Probable right ovarian cyst. SEPSIS Sepsis Screen Date sepsis recognized/suspect: Apr 28, 2025 Time Sepsis recognized/suspect: 623 Recent Procedure: No On Antibiotic Therapy: No Respiratory Rate >20: No Heart Rate >90: No Temp<36 C (96.8 F) or >38.3 C: No SBP <90 or MAP <65 mmHG: No New Acute Mental Status Change: No Is the patient on CPAP, BIPAP,: No Physician Orders Ct Ab Pel Wo Con-No Oral Or Iv (04/28/25 04:28) Chest Xray 1 View (04/28/25 06:39) Lactic Acid W/ Reflex Order (04/28/25 06:39) Blood Culture (04/28/25 06:39) Urine Bacterial Culture (04/28/25 06:39) * Psychiatric Consult (04/28/25 07:14) Admit (04/28/25 07:14) Allergies (04/28/25 07:14) Code Status (04/28/25 07:14) Hydrocodone-Acet 5/325mg Tab ([place] 5/32 (04/28/25 07:15) Ondansetron Hcl (Zofran) (04/28/25 07:15) Complete Blood Count (04/29/25 04:00) Comprehensive Metabolic Panel (04/29/25 04:00) Cardiac Diet-2gna,Lofat,Lochol (04/28/25 Breakfast) Acetaminophen Tablet (Tylenol Tablet) (04/28/25 07:15) Morphine Sulfate Injection (04/28/25 07:15) Sequential Compression Device (04/28/25 ) Pelvic (04/28/25 07:16) Vital Signs Date Time Temp Pulse Resp B/P (MAP) Pulse Ox O2 Delivery O2 Flow Rate FiO2 04/28/25 06:58 89 16 148/80 04/28/25 06:22 98 Room Air* 0 21 04/28/25 06:17 99.8 93 16 148/80 (102) 95 99.8 04/28/25 02:58 98.6 86 16 112/84 (93) 100 98.6 Laboratory Tests Test 04/28/25 03:14 White Blood Count 20.5 10^3/uL (4.4-10.8) H Medications Medications Dose Ordered Sig/Miguel Angel Route Start Time Stop Time Status Last Admin Dose Admin Morphine Sulfate 2 mg ONCE ONCE IV 04/28/25 05:45 04/28/25 05:46 DC 04/28/25 06:58 2 MG Ondansetron HCl 4 mg ONCE ONCE IV 04/28/25 05:45 04/28/25 05:46 DC 04/28/25 06:53 4 MG Sodium Chloride 1,000 ml @ 1,000 mls/hr Q1H ONCE IV 04/28/25 05:45 04/28/25 06:44 DC 04/28/25 06:52 1,000 MLS/HR Assessment/Plan Assessment/Plan Assessment Intractable pelvic pain Probable right ovarian cyst per imaging Leukocytosis rule out sepsis Microcytic anemia Morbid obesity History of schizophrenia History of bipolar disease ? History of left wrist laceration patient reports ? History of diabetes patient reports ? History of endometrial cancer patient reports Plan Admit to med surge Antiemetics Pain management NS 1 L given in ED CT abdomen and pelvis noted HCG noted UA noted Blood cultures Urine cultures Lactic level Pelvic ultrasound ordered Chest x-ray ordered and noted Diet Home medications reconciled DVT prophylaxis-not indicated patient ambulating PUD prophylaxis-not indicated no history of GERD or GI bleed Discussed plan of care with patient and nurse Psych consult Counseled patient on lifestyle modifications, diet, and exercise Counseled patient on cessation of alcohol use Social work patient lives in a intermediate called [facility] room and board [id number] Preventive counseling healthy eating habits, physical activity, and regular checkups Plan discussed with: Patient My Orders Orders - PRAMOD DILLON LOAD BLOCKER Procedure Category Date Status Time Chest Xray 1 View XY 04/28/25 Resulted 06:39 Lactic Acid W/ Reflex LAB 04/28/25 Logged Order 06:39 Blood Culture LAUREN 04/28/25 Logged 06:39 Urine Bacterial LAUREN 04/28/25 Logged Culture 06:39 * Psychiatric Consult CONS 04/28/25 Transmitted 07:14 Admit ADMIT 04/28/25 Transmitted 07:14 Allergies CYNDI 04/28/25 In Process 07:14 Code Status CODE 04/28/25 Transmitted 07:14 Hydrocodone-Acet PHA 04/28/25 Logged 5/325mg Tab ([place] 07:15 Ondansetron Hcl PHA 04/28/25 Logged (Zofran) 07:15 Complete Blood Count LAB 04/29/25 Verified 04:00 Comprehensive LAB 04/29/25 Verified Metabolic Panel 04:00 Cardiac DIET 04/28/25 Transmitted Diet-2gna,Lofat,Lochol Breakfast Acetaminophen Tablet PHA 04/28/25 Logged (Tylenol Tablet) 07:15 Morphine Sulfate PHA 04/28/25 Logged Injection 07:15 Sequential CYNDI 04/28/25 In Process Compression Device Pelvic US 04/28/25 Logged 07:16 Date of Service: Apr 28, 2025 Billing Provider: PRAMOD DILLON Common Visit Codes: 60589-[place] INP/OBS CARE (HIGH) Secondary Visit Codes: [id number] COUNSELING IND PRAMOD DILLON Apr 28, 2025 07:34
--- NOTE | 2025-04-28 08:27 | DVH ---
Technique: Real-time ultrasound images through the pelvis using a transabdominal transducer. Indication: pelvic pain Comparison: None Findings: The uterus measures 7.9 cm. The endometrial stripe measures 6 mm. There are no focal masses. There is no abnormal flow in the endometrium. Right ovary measures 3.2 x 2.2 x 2.6 cm. Normal flow on color doppler images. No focal masses are bozena ntified. Right ovarian follicle/ cyst measuring 1.3 cm Left ovary nonvisualized. There is no significant free fluid in the pelvis. Impression: Left ovary nonvisualized. No free pelvic fluid. 1.3 cm right ovarian follicle / cyst.
[2025-04-28] MEDS: risperiDONE 1 MG TAB PO SCH (11:18)
[2025-04-28] MEDS: HYDROcodone-ACET 5/325MG TAB PO PRN (16:56)
--- NOTE | 2025-04-28 17:49 | DVHINCON2 ---
Date of Service if different f: Apr 28, 2025 Consultation ([facility]) Progress: Declining Labs Laboratory Tests Test 04/28/25 03:14 04/28/25 05:12 04/28/25 07:30 White Blood Count 20.5 10^3/uL (4.4-10.8) Red Blood Count 4.93 10^6/uL (4.0-5.20) Hemoglobin 11.7 g/dL (12.2-16.2) Hematocrit 36.8 % (36.0-46.0) Mean Corpuscular Volume 74.7 fL (80.0-100.0) Mean Corpuscular Hemoglobin 23.7 pg (28.0-32.0) Mean Corpuscular Hemoglobin Concent 31.8 g/dL (32.0-36.0) Red Cell Distribution Width 18.5 % (11.8-14.3) Platelet Count 566 10^3/uL (140-450) Mean Platelet Volume 8.2 fL (6.9-10.8) Neutrophils (%) (Auto) 58.7 % (37.0-80.0) Lymphocytes (%) (Auto) 31.5 % (10.0-50.0) Monocytes (%) (Auto) 7.9 % (0.0-12.0) Eosinophils (%) (Auto) 0.8 % (0.0-7.0) Basophils (%) (Auto) 1.1 % (0.0-2.0) Neutrophils # (Auto) 12.0 10 ^3/uL (1.6-8.6) Lymphocytes # (Auto) 6.5 10 ^3/uL (0.4-5.4) Monocytes # (Auto) 1.6 10 ^3/uL (0-1.3) Eosinophils # (Auto) 0.2 10 ^3/uL (0-0.8) Basophils # (Auto) 0.2 10 ^3/uL (0-0.2) Nucleated Red Blood Cells 0.2 % Sodium Level 140 mmol/L (136-145) Potassium Level 4.3 mmol/L (3.5-5.1) Chloride Level 107 mmol/L (98-107) Carbon Dioxide Level 26 mmol/L (20-31) Anion Gap 7 (5-15) Blood Urea Nitrogen 13 mg/dL (9-23) Creatinine 0.70 mg/dL (0.550-1.02) Glomerular Filtration Rate Calc 121 mL/min (>90) BUN/Creatinine Ratio 18.6 (10.0-20.0) Serum Glucose 106 mg/dL (74-106) Hemoglobin A1c 5.3 % A1C (<5.7) Calcium Level 9.1 mg/dL (8.7-10.4) Beta HCG, Quantitative 0.8 mIU/mL (1.5-4.2) Urine Color Yellow (Yellow) Urine Clarity Clear (Clear) Urine pH 5.5 (5.0-9.0) Urine Specific [place] 1.033 (1.001-1.035) Urine Protein Negative (Negative) Urine Ketones Negative (Negative) Urine Blood Negative /uL (Negative) Urine Nitrite Negative (Negative) Urine Bilirubin Negative (Negative) Urine Urobilinogen Normal mg/dL (Negative) Urine Leukocyte Esterase Negative /uL (Negative) Urine RBC 2 /hpf (0 - 4) Urine Microscopic WBC 2 /HPF (0-5) Urine Squamous Epithelial Cells Few /hpf (<5) Urine Bacteria None seen /hpf (None Seen) Urine Mucus Few (None Seen) Urine Glucose Normal mg/dL (Normal) Urine Test Negative (Negative) Lactic Acid Level 1.7 mmol/L (0.4-2.0) Appetite: Good Side effects of medications: No Appearance: Stated age Psychomotor activity: Calm Behavioral: Cooperative Speech: WNL Affect: Flat, Inappropriate to mood Mood: Euthymic Thought processes: Linear/Goal-directed Thought content: Delusions (somatic, pseudocyesis), Hallucinations (AH) Suicidal ideations: Absent Homicidal ideations: Absent Orientation: Person, Place, Situation Memory intact: Remote Intellect: Below average Abstractability: WNL Concentration: Adequate Attention: Adequate Judgement: WNL Insight: Poor Vitals Vital Signs Date Time Temp Pulse Resp B/P (MAP) Pulse Ox O2 Delivery O2 Flow Rate FiO2 04/28/25 16:30 97.7 80 18 141/74 (96) 99 97.7 04/28/25 06:22 Room Air* 0 21 Current medications Current Medications Medications Dose Ordered Sig/Miguel Angel Route Start Time Stop Time Status Last Admin Dose Admin Acetaminophen/ Hydrocodone Bitart 1 tab Q4HP PRN PO 04/28/25 07:15 04/28/25 16:56 1 TAB Ondansetron HCl 4 mg Q4HP PRN IV 04/28/25 07:15 Acetaminophen 650 mg Q6HP PRN PO 04/28/25 07:15 Morphine Sulfate 2 mg Q4HPRN PRN IV 04/28/25 07:15 Risperidone 1 mg DAILY PO 04/28/25 10:00 04/28/25 11:18 1 MG Divalproex Sodium 250 mg DAILY PO 04/28/25 10:00 04/28/25 11:18 250 MG Trazodone HCl 50 mg HS PO 04/28/25 22:00 Treatment plan discussed: With staff Medication adjusted: Yes Labs ordered: No Psychotherapy provided: Yes Type: Voluntary Diagnosis: Schizophrenia Plan : The pt has a past diagnosis of schizophrenia which looks to be accurate. The pt is presenting with delusions (pseudocyesis), somatic hallucinations (?) and talking about all manner of strange things as documented in HPI. Pt is supposed to be taking risperdal, but stopped taking it b/c she thoughts she should stop when she turned 29. Pt is willing to continue taking antipsychotics, pt is very pleasant, does have some inappropriate laughter, does not appear to be in pain, is very calm, comfortable and even laughed without wincing. Does co, having uterine cramps but was satisfied with explanation of this being possibly linked to right ovarian cyst. Pt reported past hx of PCOS. Bearing in mind the pt's mordbid obesity and PCOS, the pt should not be on depakote which has both as a side effect. Likewise, risperdal is not recommended b/c of the metabolic side effect profile. Geodon or Latuda would be best but hospital does not carry either in formulary. However, the pt is willing to try haldol PO. It is therefore recommended that depakote and risperdal be stopped and pt be started on haldol 10 mg BID + cogentin 2 mg BID. The pt denies any SI or HI and if wiling to return home can be discharged when medically stable. Pt's psychosis/delusions about may not be able to be reasoned with so it is recommended that the pt not be engaged about her delusion of being . The pt is pleasantly psychotic and not a danger to self or others and does not require a legal hold nor a transfer to inpatient psychiatry. History of Present Illness Reason for Consult : They don't believe me. HPI : Pt says that she is taking her psych meds. She knows that she is but no one believes her. Pt insists that she is in labor because she has the pain like she was in labor last time when she gave . Pt says that she has 2 kids, 1 aged 20 and the other 16, then she says she might have adopted them and does not actually raise them. Pt thinks that she got gaslighted into raising someone else's kids and then says that maybe her kids got taken away. Pt is very pleasant and holds fast to her various delusions. Pt also reports experiencing AH and sometimes the command her to hurt herself. She currently denies any SI or HI but is experiencing intermittent hallucinations. Past Psychiatric History : Schizophrenia diagnosis. Multiple inpatient treatments. Currently on Depakote 250mg BID and Risperdal 1 mg BID. Pt says she thoughts she didn't have to take risperdal after she turned 29 so she stopped taking it. Past Medical History : Pt has a history of PCOS and was once diagnosed as being infertile. Pt wants to get . Social History : Pt lives in a prison. She says she has a boyfriend who travels for work and she wants to have children with him. Assessment/Diagnosis/Plan Reviewed: Care Plan, Medications MARIAM REECE MD Apr 28, 2025 17:49
[2025-04-29] VITALS (8 sets, daily range): BP systolic 112–146; BP diastolic 56–92; PULSE 62–82; RESP 16–17; TEMP 97.3–97.8; O2SAT 97–100
[2025-04-29 07:08] LABS: Hematocrit 39.5 % (36.0-46.0); Hemoglobin 12.4 g/dL (12.2-16.2); Mean Corpuscular Hemoglobin 23.4 pg (28.0-32.0); Mean Corpuscular Volume 74.4 fL (80.0-100.0); Nucleated Red Blood Cells % 0.0 %
[2025-04-29 07:32] LABS: Alanine Aminotransferase 14 U/L (7-40); Alkaline Phosphatase 85 U/L (46-116); Blood Urea Nitrogen 10 mg/dL (9-23); Calcium 9.6 mg/dL (8.7-10.4); Chloride 105 mmol/L (98-107); Potassium 4.7 mmol/L (3.5-5.1); Sodium 140 mmol/L (136-145)
[2025-04-29 07:33] LABS: Glucose 93 mg/dL (74-106); Total Protein 6.8 g/dL (5.7-8.2)
[2025-04-29 07:34] LABS: Albumin 3.9 g/dL (3.2-4.8); BUN/Creatinine Ratio 14.3 (10.0-20.0)
[2025-04-29 07:51] LABS: Ovalocytes FEW
[2025-04-29 08:01] LABS: Anion Gap 9 (5-15); Carbon Dioxide 26 mmol/L (20-31)
[2025-04-29 08:09] LABS: Bilirubin, Total 0.2 mg/dL (0.2-1.0)
--- NOTE | 2025-04-29 13:46 | DVHPN2 ---
Subjective Patient's mood is calm and feels little bit better today. Evaluated by tele psych recommending switch her Depakote risperidone to Haldol and Cogentin. Changes from previous H/P or p: No Changes Genitourinary: Other (Pelvic pain) Objective Vitals Vital Signs Date Time Temp Pulse Resp B/P (MAP) Pulse Ox O2 Delivery O2 Flow Rate FiO2 04/29/25 08:30 97.8 67 16 146/92 (110) 99 97.8 04/29/25 08:00 Room Air* 0 21 Intake/Output Intake and Output 04/29/25 07:00 Intake Total 1500 ml Balance 1500 ml Intake Oral 500 ml IV Total 1000 ml # Voids 4 # Bowel Movements 1 Exam Alert awake oriented to place and person. Calm. HEENT neck supple no JVD. Heart regular rate and rhythm S1-S2. Lungs fair air movement without rales wheezes. Abdomen soft nontender obese positive bowel sounds. Extremities no edema. Neurologically no focal deficits. Medications Current Medications Medications Dose Ordered Sig/Miguel Angel Route Start Time Stop Time Status Last Admin Dose Admin Acetaminophen/ Hydrocodone Bitart 1 tab Q4HP PRN PO 04/28/25 07:15 04/28/25 16:56 1 TAB Ondansetron HCl 4 mg Q4HP PRN IV 04/28/25 07:15 Acetaminophen 650 mg Q6HP PRN PO 04/28/25 07:15 Morphine Sulfate 2 mg Q4HPRN PRN IV 04/28/25 07:15 Haloperidol 10 mg BID PO 04/29/25 22:00 Benztropine Mesylate 2 mg Q12HR PO 04/29/25 22:00 Laboratory Results Laboratory Tests 04/29/25 06:30 Chemistry Test 04/29/25 06:30 Albumin 3.9 g/dL (3.2-4.8) Calcium Level 9.6 mg/dL (8.7-10.4) Total Protein 6.8 g/dL (5.7-8.2) LFT Test 04/29/25 06:30 Alanine Aminotransferase (ALT) 14 U/L (7-40) Alkaline Phosphatase 85 U/L (46-116) Aspartate Amino Transferase (AST) 15 U/L (13-40) Total Bilirubin 0.2 mg/dL (0.2-1.0) Urinalysis Test 04/28/25 05:12 Urine Color Yellow (Yellow) Urine Clarity Clear (Clear) Urine pH 5.5 (5.0-9.0) Urine Specific [place] 1.033 (1.001-1.035) Urine Protein Negative (Negative) Urine Ketones Negative (Negative) Urine Blood Negative /uL (Negative) Urine Nitrite Negative (Negative) Urine Bilirubin Negative (Negative) Urine Urobilinogen Normal mg/dL (Negative) Urine Leukocyte Esterase Negative /uL (Negative) Urine RBC 2 /hpf (0 - 4) Urine Microscopic WBC 2 /HPF (0-5) Urine Squamous Epithelial Cells Few /hpf (<5) Urine Bacteria None seen /hpf (None Seen) Urine Mucus Few (None Seen) Urine Glucose Normal mg/dL (Normal) Urine Test Negative (Negative) Microbiology Microbiology Date/Time Source Procedure Growth Status 04/28/25 07:30 Blood Blood Culture - Preliminary NO GROWTH AFTER 24 HOURS OF INCUBATION. Resulted 04/28/25 05:01 Voided Urine Urine Culture - Preliminary Resulted Assessment/Plan Assessment/Plan I will start her on Haldol and Cogentin per recommendations from psych. We will DC Depakote and risperidone. Otherwise continue rest of supportive care and treatment as she is on. Further clinical management per clinical course. Encouraged activity and ambulation. Discussed with the patient's nurse regarding care plan. Plan discussed with: Patient, Other My Orders Orders - MICA CRAMER MD Procedure Category Date Status Time Haloperidol Tablet PHA 04/29/25 In Process (Haldol Tablet) 22:00 Benztropine Tablet PHA 04/29/25 In Process (Cogentin Tablet) 22:00 Haloperidol Tablet PHA 04/29/25 Verified (Haldol Tablet) 22:00 Electrocardigram EKG 04/30/25 Verified 04:00 Problem List: (1) Psychosis (2) Acute metabolic encephalopathy (3) Anxiety Date of Service: Apr 29, 2025 Billing Provider: MICA CRAMER MD Common Visit Codes: [id number] INP/OBS CARE(MOD) MICA CRAMER MD Apr 29, 2025 13:46
[2025-04-29] MEDS: BENZTROPINE MESY 0.5 MG TAB PO SCH (21:30)
[2025-04-29] MEDS: HALOPERIDOL 5 MG TAB PO SCH (21:31)
[2025-04-29] MEDS ORDERED: HALOPERIDOL 5 MG TAB PO SCH (22:00)
[2025-04-30 01:00] VITALS: BP 117/81; PULSE 64; RESP 18; TEMP 97.9; O2SAT 97
[2025-04-30 05:00] VITALS: BP 102/66; PULSE 76; RESP 18; TEMP 97.6; O2SAT 99
--- NOTE | 2025-04-30 07:33 | ECG ---
[facility] Test Date: 2025-04-30 Test Time: 03:29:11 Pat Name: TIM LARSEN Department: Room: [facility] A Gender: F [employer] Supervisor: WING : 1995 Requested By: MICA CRAMER Order Number: [id number] Reading MD: Johnie Beavers Measurements Intervals [place] Rate: 69 P: 13 ID: [id number] QRS: -8 QRSD: 98 T: 22 QT: 419 QTc: 449 Interpretive Statements Sinus rhythm Electronically Signed On 04-30-2025 13:25:25 PDT by Johnie Beavers Please click the below link to view image of tracing.
[2025-04-30] MEDS ORDERED: ceFAZolin 2 GM/D5W50ml 50 ML IV ONE (08:03)
[2025-04-30 08:51] VITALS: BP 99/62; PULSE 72; RESP 17; TEMP 97.9; O2SAT 98
[2025-04-30 11:40] VITALS: BP 118/54; PULSE 81; RESP 17; O2SAT 98
[2025-04-30] MEDS ORDERED: HAL5T PO (12:17)
[2025-04-30] MEDS ORDERED: BENZ1TAB6 PO ×2 (12:17→17:38)
[2025-04-30] MEDS ORDERED: ZIPR20CA9 PO ×2 (12:24→17:38)
--- NOTE | 2025-04-30 12:27 | DVHDS2 ---
Discharge Summary Date of Admission Apr 28, 2025 at 07:14 Date of Discharge: Apr 30, 2025 Labs/Diagnostic Data: Laboratory Results Test 04/29/25 06:30 04/28/25 07:30 04/28/25 05:12 04/28/25 03:14 White Blood Count 17.8 10^3/uL (4.4-10.8) Red Blood Count 5.31 10^6/uL (4.0-5.20) Hemoglobin 12.4 g/dL (12.2-16.2) Hematocrit 39.5 % (36.0-46.0) Mean Corpuscular Volume 74.4 fL (80.0-100.0) Mean Corpuscular Hemoglobin 23.4 pg (28.0-32.0) Mean Corpuscular Hemoglobin Concent 31.5 g/dL (32.0-36.0) Red Cell Distribution Width 18.8 % (11.8-14.3) Platelet Count 566 10^3/uL (140-450) Mean Platelet Volume 8.7 fL (6.9-10.8) Neutrophils (%) (Auto) 66.6 % (37.0-80.0) Lymphocytes (%) (Auto) 24.7 % (10.0-50.0) Monocytes (%) (Auto) 7.0 % (0.0-12.0) Eosinophils (%) (Auto) 1.3 % (0.0-7.0) Basophils (%) (Auto) 0.4 % (0.0-2.0) Neutrophils # (Auto) 11.8 10 ^3/uL (1.6-8.6) Lymphocytes # (Auto) 4.4 10 ^3/uL (0.4-5.4) Monocytes # (Auto) 1.2 10 ^3/uL (0-1.3) Eosinophils # (Auto) 0.2 10 ^3/uL (0-0.8) Basophils # (Auto) 0.1 10 ^3/uL (0-0.2) Nucleated Red Blood Cells 0.0 % Platelet Estimate Increased Hypochromasia (manual) Slight Microcytosis Slight Target Cells Few Ovalocytes Few Sodium Level 140 mmol/L (136-145) Potassium Level 4.7 mmol/L (3.5-5.1) Chloride Level 105 mmol/L (98-107) Carbon Dioxide Level 26 mmol/L (20-31) Anion Gap 9 (5-15) Blood Urea Nitrogen 10 mg/dL (9-23) Creatinine 0.70 mg/dL (0.550-1.02) Glomerular Filtration Rate Calc 121 mL/min (>90) BUN/Creatinine Ratio 14.3 (10.0-20.0) Serum Glucose 93 mg/dL (74-106) Calcium Level 9.6 mg/dL (8.7-10.4) Total Bilirubin 0.2 mg/dL (0.2-1.0) Aspartate Amino Transferase (AST) 15 U/L (13-40) Alanine Aminotransferase (ALT) 14 U/L (7-40) Alkaline Phosphatase 85 U/L (46-116) Total Protein 6.8 g/dL (5.7-8.2) Albumin 3.9 g/dL (3.2-4.8) Lactic Acid Level 1.7 mmol/L (0.4-2.0) Urine Color Yellow (Yellow) Urine Clarity Clear (Clear) Urine pH 5.5 (5.0-9.0) Urine Specific [place] 1.033 (1.001-1.035) Urine Protein Negative (Negative) Urine Ketones Negative (Negative) Urine Blood Negative /uL (Negative) Urine Nitrite Negative (Negative) Urine Bilirubin Negative (Negative) Urine Urobilinogen Normal mg/dL (Negative) Urine Leukocyte Esterase Negative /uL (Negative) Urine RBC 2 /hpf (0 - 4) Urine Microscopic WBC 2 /HPF (0-5) Urine Squamous Epithelial Cells Few /hpf (<5) Urine Bacteria None seen /hpf (None Seen) Urine Mucus Few (None Seen) Urine Glucose Normal mg/dL (Normal) Urine Test Negative (Negative) Hemoglobin A1c 5.3 % A1C (<5.7) Beta HCG, Quantitative 0.8 mIU/mL (1.5-4.2) Other Laboratory Tests 04/29/25 06:30 Final Diagnosis/Problems List Schizophrenia, noncompliance with the medication [facility] Instruct/Medications Diet: Consistent carbohydrate, Cardiac 2g Na,low cholest Activity: No Restrictions, As Tolerated Follow Up/Referral: With psychiatrist for adjustment of your schizophrenia medications and management Medications: As prescribed for discharge med reconciliation list Scheduled Benztropine Mesylate (Benztropine Mesylate), 1 TAB PO BID Divalproex Sodium (Divalproex Sodium Dr), 1 TAB PO BID, (Reported) Divalproex Sodium (Divalproex Sodium), TAB PO DAILY, (Reported) Trazodone Hcl (Trazodone Hcl), 1 TAB PO DAILY, (Reported) Ziprasidone Hydrochloride (Geodon), 20 MG PO BID Miscellaneous Medications Risperidone (Risperidone), TAB PO, (Reported) Discharge Statement: "Patient was advised to return to the ER or call 911 if any headaches, dizziness, shortness of breath, chest pain, abdominal pain, bleeding, fevers, or worsening of medical condition. Patient was counseled about treatment plan, medications, possible side effects, patientverbalized understanding. All questions were answered to the best of my ability. This discharge took greater then 30 minutes in planning, reviewing documentation, counseling the patient, and discussing with other team members." ASSESSMENT ASSESSMENT Assessment Schizophrenia, noncompliance with the medication MICA CRAMER MD Apr 30, 2025 12:27
[2025-04-30 12:34] VITALS: BP 113/66; PULSE 89; RESP 17; TEMP 98.1; O2SAT 97
[2025-04-30 17:00] VITALS: BP 100/50; PULSE 85; RESP 17; TEMP 98.6; O2SAT 97
== END 2025-04-30 20:10 | disposition home or self-care (01) | DRG 760 ==
LOC: EDBD 02:58 → ER 02:58 → EDUNIT# 02:58 → OVERFLOW 07:14 → WEST WING 15:47
PROVIDERS: ADMIT Hospitalist; ATTEND Hospitalist
DX: N83.291 Other ovarian cyst, right side (principal); G93.41 Metabolic encephalopathy; Z68.42 Body mass index [BMI] 45.0-49.9, adult; D50.9 Iron deficiency anemia, unspecified; E66.01 Morbid (severe) obesity due to excess calories; F31.9 Bipolar disorder, unspecified; F20.9 Schizophrenia, unspecified; F41.9 Anxiety disorder, unspecified; S61.512A Laceration without foreign body of left wrist, initial encounter; E11.9 Type 2 diabetes mellitus without complications; D72.829 Elevated white blood cell count, unspecified; Z79.899 Other long term (current) drug therapy; Z88.1 Allergy status to other antibiotic agents; Z91.012 Allergy to eggs; Z91.148 Patient's other noncompliance with medication regimen for other reason; Z85.42 Personal history of malignant neoplasm of other parts of uterus; X58.XXXA Exposure to other specified factors, initial encounter; Y93.89 Activity, other specified; Y92.89 Other specified places as the place of occurrence of the external cause; Y99.8 Other external cause status
CPT/HCPCS: 36415; 71045; 74176; 76856; 80048; 80053; 81001; 81025; 83036; 83605; 84702; 85025; 87040; 87081; 87086; 93005; 96361; 96374; G0378; J2405

== ENCOUNTER 2025-05-11 23:09 | Emergency (ER) | payer MEDICARE, OTHER ==
[~2025-05-11] VITALS: Ht 160 cm; Wt 106.6 kg
[~2025-05-11 23:09] MED LIST changes: -BENZ1TAB6; +BENZ1TAB6 PO; -DIVA1TAB58 PO; -DIVA250T12 PO; -RISP1TAB63 PO; +ZIPR20CA9 PO
--- NOTE | 2025-05-11 23:38 | ED.PDOC ---
History of Present Illness HPI Comments 29 year old female with a Hx of Schizophrenia, Bipolar, and a current R Ovary Cyst presents to the ED for the c/c of diffuse Pelvic pain. Pt states that her pain has been onset for the past 3x days. Pt states her pain started after she "popped it" after getting out of her car. Pt is noted to have had an US ordered by Dr. BERNICE Mariscal on 04/28/25, and Impression stated:No acute abdominal or pelvic findings. Nonspecific retroperitoneal and bilateral inguinal lymphadenopathy.Probable right ovarian cyst. Pt is noted to be A&ox4 and has a stable gait. No other associated symptoms, modifiers, recent injuries or sick contacts present at this time. Chief Complaint: Pelvic Pain Time Seen by MD: 23:34 Reviewed Notes: Nurses Notes, Medications, Allergies Allergies: Coded Allergies: Egg-derived Products (Verified Allergy, Unknown, 03/18/25) Vancomycin (Verified Allergy, Unknown, 03/17/25) Home Meds Active Scripts Amoxicillin Trihydrate (Amoxicillin) 500 Mg Cap, 1 CAP PO BID for 10 Days, #20 CAP Prov:TERESITA HERNANDEZ MD 05/12/25 Ziprasidone Hydrochloride (Geodon) 20 Mg Cap, 20 MG PO BID MDD ., #90 CAP 1 Refill Prov:MICA CRAMER MD 04/30/25 Benztropine Mesylate (Benztropine Mesylate) 1 Mg Tab, 1 TAB PO BID MDD ., #90 TAB Prov:MICA CRAMER MD 04/30/25 Reported Medications Trazodone Hcl (Trazodone Hcl) 50 Mg Tab, 1 TAB PO DAILY 03/18/25 Information Source: Patient Mode of Arrival: Ambulatory Severity: Mild Timing: Days Duration: Intermittent, Days Prehospital treatment: None Past Medical History PAST MEDICAL HISTORY: Schizophrenia Surgical History: Denies all surgeries HORSE RACING MANAGER History: No Pertinent HORSE RACING MANAGER History Family History Family History: Reviewed,noncontributory to illness Social History Smoker: Non-Smoker Alcohol: Denies ETOH Use Drugs: Denies Drug Use Lives In: Assisted Care Constitutional: denies: chills, diaphoresis, fatigue, fever, malaise, sweats, weakness, others EENTM: denies: blurred vision, double vision, ear bleeding, ear discharge, ear drainage, ear pain, ear ringing, eye pain, eye redness, hearing loss, mouth pain, mouth swelling, nasal discharge, nose bleeding, nose congestion, nose pain, photophobia, tearing, throat pain, throat swelling, voice changes, others Respiratory: denies: cough, hemoptysis, orthopnea, SOB at rest, shortness of breath, SOB with excertion, stridor, wheezing, others Cardiovascular: denies: chest pain, dizzy spells, diaphoresis, Dyspnea on exertion, edema, irregular heart beat, left arm pain, lightheadedness, palpitations, PND, syncope, others Gastrointestinal: denies: abdomen distended, abdominal pain, blood streaked bowels, constipated, diarrhea, dysphagia, difficulty swallowing, hematemesis, melena, nausea, poor appetite, poor fluid intake, rectal bleeding, rectal pain, vomiting, others Genitourinary: reports: others (Pelvic pain); denies: abnormal vagina bleeding, burning, dyspareunia, dysuria, flank pain, frequency, hematuria, incontinence, pain, , vagina discharge, urgency Neurological: denies: dizziness, fainting, headache, left sided numbness, left sided weakness, numbness, paresthesia, pre-existing deficit, right sided numbness, right sided weakness, seizure, speech problems, tingling, tremors, weakness, others Musculoskeletal: denies: back pain, gout, joint pain, joint swelling, muscle pain, muscle stiffness, neck pain, others Integumetry: denies: bruises, change in color, change in hair/nails, dryness, laceration, lesions, lumps, rash, wounds, others Allergic/Immunocompromised: denies: Difficulty Healing, Frequent Infections, Hives, Itching, others Hematologic/Lymphatic: denies: anemia, blood clots, easy bleeding, easy bruising, swollen glands, others Endocrine: denies: excessive hunger, excessive sweating, excessive thirst, excessive urination, flushing, intolerance to cold, intolerance to heat, unexplained weight gain, unexplained weight loss, others Psychiatric: denies: anxiety, bipolar disorder, depression, hopeless, panic disorder, schizophrenia, sleepless, suicidal, others All Other Systems: Reviewed and Negative Physical Exam General Appearance: Moderate Distress, Normal, Obese HEENT: Normal ENT Inspection, Pharynx Normal, TMs Normal Neck: Full Range of Motion, Non-Tender, Normal, Normal Inspection Respiratory: Chest Non-Tender, Lungs Clear, No Accessory Muscle Use, No Respiratory Distress, Normal Breath Sounds Cardiovascular: No Edema, No JVD, No Murmur, No Gallop, Normal Peripheral Pulses, Regular Rate/Rhythm Breast Exam: Deferred Gastrointestinal: No Organomegaly, Non Tender, No Pulsatile Mass, Normal Bowel Sounds, Soft Genitalia: Deferred Pelvic: No Masses, None Rectal: Deferred Extremities: No calf tenderness, Normal capillary refill, Normal inspection, Normal range of motion, Non-tender, No pedal edema Musculoskeletal : Apperance: Normal Neurologic: Alert, No Motor Deficits, Normal Affect, Normal Mood, No Sensory Deficits Cerebellar Function: Normal Reflexes: Normal Skin: Dry, Normal Color, Warm Lymphatic: No Adenopathy Was a procedure done? Was a procedure done?: No Differential Dx Considerations may include: Differential diagnosis includes but is not limited to: appendicitis, diverticulitis, colitis, urinary tract infection, ureteral colic / stone, bowel obstruction, and others X-Ray, Labs, Meds, VS Vital Signs Date Time Temp Pulse Resp B/P (MAP) Pulse Ox O2 Delivery O2 Flow Rate FiO2 05/12/25 05:15 98.9 100 20 157/92 (113) 95 98.9 05/12/25 01:18 98.2 107 20 128/66 (86) 95 98.2 05/12/25 01:18 78 20 95 Room Air 05/11/25 23:20 99.1 114 20 105/40 (61) 97 99.1 Lab Test 05/12/25 00:51 05/11/25 23:34 05/11/25 23:30 Range/Units Lactic Acid Level 1.0 0.4-2.0 mmol/L White Blood Count 23.6 H 4.4-10.8 10^3/uL Red Blood Count 4.85 4.0-5.20 10^6/uL Hemoglobin 11.5 L 12.2-16.2 g/dL Hematocrit 36.2 36.0-46.0 % Mean Corpuscular Volume 74.7 L 80.0-100.0 fL Mean Corpuscular Hemoglobin 23.7 L 28.0-32.0 pg Mean Corpuscular Hemoglobin Concent 31.7 L 32.0-36.0 g/dL Red Cell Distribution Width 18.4 H 11.8-14.3 % Platelet Count 577 H 140-450 10^3/uL Mean Platelet Volume 8.0 6.9-10.8 fL Neutrophils (%) (Auto) 66.5 37.0-80.0 % Lymphocytes (%) (Auto) 24.2 10.0-50.0 % Monocytes (%) (Auto) 6.8 0.0-12.0 % Eosinophils (%) (Auto) 1.7 0.0-7.0 % Basophils (%) (Auto) 0.8 0.0-2.0 % Neutrophils # (Auto) 15.7 H 1.6-8.6 10 ^3/uL Lymphocytes # (Auto) 5.7 H 0.4-5.4 10 ^3/uL Monocytes # (Auto) 1.6 H 0-1.3 10 ^3/uL Eosinophils # (Auto) 0.4 0-0.8 10 ^3/uL Basophils # (Auto) 0.2 0-0.2 10 ^3/uL Nucleated Red Blood Cells 0.1 % Sodium Level 137 136-145 mmol/L Potassium Level 4.1 3.5-5.1 mmol/L Chloride Level 102 98-107 mmol/L Carbon Dioxide Level 27 20-31 mmol/L Anion Gap 8 5-15 Blood Urea Nitrogen 14 9-23 mg/dL Creatinine 0.85 0.550-1.02 mg/dL Glomerular Filtration Rate Calc 96 >90 mL/min BUN/Creatinine Ratio 16.5 10.0-20.0 Serum Glucose 122 H 74-106 mg/dL Calcium Level 10.0 8.7-10.4 mg/dL Urine Color Yellow Yellow Urine Clarity Clear Clear Urine pH 5.5 5.0-9.0 Urine Specific [place] 1.032 1.001-1.035 Urine Protein Trace H Negative Urine Ketones Negative Negative Urine Blood Negative Negative /uL Urine Nitrite Negative Negative Urine Bilirubin Negative Negative Urine Urobilinogen Normal Negative mg/dL Urine Leukocyte Esterase Negative Negative /uL Urine RBC <1 0 - 4 /hpf Urine Microscopic WBC 2 0-5 /HPF Urine Squamous Epithelial Cells Few <5 /hpf Urine Bacteria None seen None Seen /hpf Urine Hyaline Casts Few 0 - 2 /lpf Urine Mucus Few None Seen Urine Glucose Normal Normal mg/dL Current Medications Medications (Trade) Dose Ordered Sig/Miguel Angel Route Start Time Stop Time Status Last Admin Sodium Chloride 1,000 ml @ 1,000 mls/hr Q1H ONCE IVB 05/12/25 00:45 05/12/25 01:44 DC 05/12/25 01:34 Ceftriaxone Sodium 50 ml @ 100 mls/hr ONCE ONCE IV 05/12/25 04:45 05/12/25 05:14 DC 05/12/25 05:04 Acetaminophen (Tylenol Tablet) 650 mg ONCE ONCE PO 05/12/25 05:15 05/12/25 05:16 DC 05/12/25 05:06 PATIENT: TIM LARSEN ACCT: [id number] UNIT: [id number] : 1995 LOC: ER ROOM / BED: / AGE / SEX: 29 / F ADM STATUS: REG ER SERVICE [id number] ORDERING PHYSICIAN: TERESITA HERNANDEZ MD PROCEDURE(s): ABPLIV - CT AB PEL WITH IV CON ONLY REASON: RLQ pain ORDER NUMBER(s): [id number], ACCESSION NUMBER(s): [id number] Exam: CT CT AB PEL WITH IV CON ONLY History: RLQ pain Comparison Study: None Technique: Multidetector spiral CT of the abdomen was performed from lung bases to pubic symphysis. Imaging was performed without IV contrast. Axial, coronal and sagittal multiplanar reformats were obtained from the axial data set by the technologist. Radiation Dose : 1. Abdomen/Pelvis: CTDIvol 23.67 mGy, DLP 1492.07 mGy*cm. Findings: Evaluation of solid organs is limited due to lack of intravenous contrast use. Lung Bases: No acute or significant lung base finding. Normal heart size. No pleural or pericardial effusion. Liver: The liver is normal in size. No focal lesions. Gallbladder and Biliary Tree: Unremarkable Spleen: Unremarkable Pancreas: The pancreas is grossly normal in appearance. Adrenal Glands: Unremarkable Kidneys: Kidneys are grossly normal without calculi or hydronephrosis. Bladder: Grossly unremarkable for degree of distention. Bowel: The stomach is grossly normal in appearance. Small bowel and colon are normal in caliber and distribution. The appendix is normal. Ascites: Absent Lymphadenopathy: No mesenteric, retroperitoneal or periportal lymphadenopathy. Abdominal Wall and Mesentery: Unremarkable. Vasculature: The visualized abdominal aorta is normal in size and caliber. Evaluation of abdominal and pelvic vessels is limited due to lack of intravenous contrast. Pelvic Organs: Uterus appears bicornuate with likely physiologic endometrial fluid. Complex appearing right adnexal cystic structure measures 3.4 x 2.6 cm. Musculoskeletal: No aggressive focal bony lesions, acute fractures or dislocation. IMPRESSION: 1. Complex right adnexal cystic structure. Considerations include a complex ovarian cyst versus cystic neoplasm and, less likely, tubo-ovarian abscess. Time of 1ST Reevaluation: 00:04 Reevaluation 1ST: Unchanged Patient Education/Counseling: Diagnosis, Treatment, Need For Follow Up Family Education/Counseling: No Family Present SEPSIS Sepsis Screen Physician Orders Urine (05/11/25 ) Ct Ab Pel With Iv Con Only (05/12/25 00:40) Blood Culture (05/12/25 00:40) Vital Signs Date Time Temp Pulse Resp B/P (MAP) Pulse Ox O2 Delivery O2 Flow Rate FiO2 05/12/25 05:15 98.9 100 20 157/92 (113) 95 98.9 05/12/25 01:18 98.2 107 20 128/66 (86) 95 98.2 05/12/25 01:18 78 20 95 Room Air 05/11/25 23:20 99.1 114 20 105/40 (61) 97 99.1 Laboratory Tests Test 05/11/25 23:34 05/12/25 00:51 White Blood Count 23.6 10^3/uL (4.4-10.8) H Lactic Acid Level 1.0 mmol/L (0.4-2.0) Medications Medications Dose Ordered Sig/Miguel Angel Route Start Time Stop Time Status Last Admin Dose Admin Acetaminophen 650 mg ONCE ONCE PO 05/12/25 05:15 05/12/25 05:16 DC 05/12/25 05:06 Ceftriaxone Sodium 50 ml @ 100 mls/hr ONCE ONCE IV 05/12/25 04:45 05/12/25 05:14 DC 05/12/25 05:04 Sodium Chloride 1,000 ml @ 1,000 mls/hr Q1H ONCE IVB 05/12/25 00:45 05/12/25 01:44 DC 05/12/25 01:34 Departure 1 Departure Time of Disposition: 02:00 Impression: Primary Impression: Abdominal pain Additional Impressions: Ovarian cyst Dental abscess Elevated white blood cell count Disposition: 01 HOME / SELF CARE / HOMELESS Condition: Stable e-Prescriptions Amoxicillin Trihydrate (Amoxicillin) 500 Mg Cap 1 CAP PO BID for 10 Days, #20 CAP Prov: TERESITA HERNANDEZ MD 05/12/25 Discharged With: Self Critical Care Note Critical Care Time?: No Stability Stability form required: No Heart Score Heart Score: Heart Score Response (Comments) Value History N/A 0 EKG N/A 0 Age N/A 0 Risk Factors N/A 0 Troponin N/A 0 Total 0 I personally scribed for TERESITA HERNANDEZ MD ([email or web address]) on 05/11/25 at 23:38. Electronically submitted by John Lawrence ([email or web address]). I personally scribed for TERESITA HERNANDEZ MD ([email or web address]) on 05/11/25 at 23:42. Electronically submitted by John Lawrence ([email or web address]). I personally scribed for TERSEITA HERNANDEZ MD ([email or web address]) on 05/12/25 at 03:59. Electronically submitted by John Lawrence ([email or web address]). TERESITA HERNANDEZ MD May 11, 2025 23:38
[2025-05-11 23:57] LABS: Hematocrit 36.2 % (36.0-46.0); Hemoglobin 11.5 g/dL (12.2-16.2); Mean Corpuscular Hemoglobin 23.7 pg (28.0-32.0); Mean Corpuscular Volume 74.7 fL (80.0-100.0); Nucleated Red Blood Cells % 0.1 %
[2025-05-12 00:03] LABS: Chloride 102 mmol/L (98-107); Potassium 4.1 mmol/L (3.5-5.1); Sodium 137 mmol/L (136-145)
[2025-05-12 00:04] LABS: Anion Gap 8 (5-15); Calcium 10.0 mg/dL (8.7-10.4); Carbon Dioxide 27 mmol/L (20-31)
[2025-05-12 00:09] LABS: BUN/Creatinine Ratio 16.5 (10.0-20.0); Blood Urea Nitrogen 14 mg/dL (9-23); Glucose 122 mg/dL (74-106)
[2025-05-12] MEDS: SODIUM CHLORIDE 0.9% 1,000 ML IVB ONE (01:34)
[2025-05-12 02:00] LABS: Urine Protein, UAD TRACE (Negative)
[2025-05-12] MEDS: IOHEXOL 300 MG/ML 100ML BOTTLE IJ ONE (02:56)
--- NOTE | 2025-05-12 03:47 | DVH ---
Exam: CT CT AB PEL WITH IV CON ONLY History: RLQ pain Comparison Study: None Technique: Multidetector spiral CT of the abdomen was performed from lung bases to pubic symphysis. I maging was performed without IV contrast. Axial, coronal and sagittal multiplanar reformats were obta ined from the axial data set by the technologist. Radiation Dose : 1. Abdomen/Pelvis: CTDIvol 23.67 mGy, DLP 1492.07 mGy*cm. Findings: Evaluation of solid organs is limited due to lack of intravenous contrast use. Lung Bases: No acute or significant lung base finding. Normal heart size. No pleural or pericardial effusion. Liver: The liver is normal in size. No focal lesions. Gallbladder and Biliary Tree: Unremarkable Spleen: Unremarkable Pancreas: The pancreas is grossly normal in appearance. Adrenal Glands: Unremarkable Kidneys: Kidneys are grossly normal without calculi or hydronephrosis. Bladder: Grossly unremarkable for degree of distention. Bowel: The stomach is grossly normal in appearance. Small bowel and colon are normal in caliber and d istribution. The appendix is normal. Ascites: Absent Lymphadenopathy: No mesenteric, retroperitoneal or periportal lymphadenopathy. Abdominal Wall and Mesentery: Unremarkable. Vasculature: The visualized abdominal aorta is normal in size and caliber. Evaluation of abdominal a nd pelvic vessels is limited due to lack of intravenous contrast. Pelvic Organs: Uterus appears bicornuate with likely physiologic endometrial fluid. Complex appearing right adnexal cystic structure measures 3.4 x 2.6 cm. Musculoskeletal: No aggressive focal bony lesions, acute fractures or dislocation. IMPRESSION: 1. Complex right adnexal cystic structure. Considerations include a complex ovarian cyst versus cysti c neoplasm and, less likely, tubo-ovarian abscess. Radiation optimization: All CT scans at this facility use at least one of these dose optimization lakisha hniques: automated exposure control mA and/or kV adjustment per patient size (includes targeted exam s where dose is matched to clinical indication) or iterative reconstruction.
[2025-05-12] MEDS ORDERED: AMOX500C2 PO (04:50)
[2025-05-12] MEDS: cefTRIAXone 1GM/50ML D5W 50 ML IV ONE (05:04)
[2025-05-12] MEDS: ACETAMINOPHEN 325 MG TAB PO ONE (05:06)
[2025-05-12 05:15] VITALS: BP 157/92; PULSE 100; RESP 20; TEMP 98.9; O2SAT 95
== END 2025-05-12 05:32 | disposition home or self-care (01) ==
LOC: ER 23:09
DX: N83.201 Unspecified ovarian cyst, right side (principal); K04.7 Periapical abscess without sinus; D72.829 Elevated white blood cell count, unspecified; R10.2 Pelvic and perineal pain; F20.9 Schizophrenia, unspecified; Z79.899 Other long term (current) drug therapy; Z88.1 Allergy status to other antibiotic agents
CPT/HCPCS: 36415; 74177; 80048; 81001; 83605; 85025; 87040; 96361; 96365; 99285; J0696; J7030; Q9967